=== PATIENT | female | born 1960 | race Caucasian/White ===

== ENCOUNTER 2016-08-30 06:52 | Inpatient (IN) | payer BC ==
[2016-08-30 07:51] LABS: Hematocrit 48 % (35-47); Hemoglobin 16.2 g/dl (12.0-16.0); Mean Corpuscular HGB Conc 34 g/dl (31-36); Mean Corpuscular Hemoglobin 31 pg (27-31); Mean Corpuscular Volume 92 fL (80-97); Mean Platelet Volume 9 um3 (7.4-10.4); Red Blood Count 5.22 10^6/ul (4.0-5.4); Red Cell Distribution Width 14 % (10.5-15); White Blood Count 8.7 10^3/ul (3.5-10.8)
[2016-08-30 08:03] LABS: ALT 44 U/L (7-52); Albumin 4.1 g/dL (3.2-5.2); Alkaline Phosphatase 88 U/L (34-104); BUN/Creatinine Ratio 20.8 (8-20); Blood Urea Nitrogen 16 mg/dL (6-24); CO2 Carbon Dioxide 24 mmol/L (22-32); Calcium 9.5 mg/dL (8.6-10.3); Chloride 97 mmol/L (101-111); Cholesterol 359 mg/dL; Globulin 3.7 g/dL (2-4); Glucose 247 mg/dL (70-100); HDL Cholesterol 45.7 mg/dL; Sodium 131 mmol/L (133-145); Total Protein 7.8 g/dL (6.4-8.9); Triglycerides 426 mg/dL
--- NOTE | 2016-08-30 08:03 | RAD ---
Indication: Right-sided weakness, slurred speech. CT of the brain was performed without IV contrast. Ventricular structures are midline. No midline shift is noted. The extraction spaces are unremarkable. There is no evidence of intracranial mass or hemorrhage. There is loss of muñoz-white differentiation in the left frontal temporal distribution which may represent an early MCA distribution infarct. No definite hemorrhage is noted. There is no evidence of intracranial mass or hemorrhage. No other high or low density lesions are identified. There may be early hypodensity in the left basal ganglia. IMPRESSION: THERE IS SOME LOSS AND CROWDING OF THE SULCI IN THE LEFT FRONTAL LOBE AND THE LEFT ANTERIOR SYLVIAN FISSURE. EARLY MCA INFARCT ON THE LEFT CANNOT BE EXCLUDED. NO HEMORRHAGE IS NOTED.
--- NOTE | 2016-08-30 08:04 | RAD ---
Indication: Chronic obstructive pulmonary disease. Strokelike symptoms. Comparison: June 11, 2016 Technique: Upright AP 0710 hours Report: Elevated lung volumes. Obesity limits image quality. No alveolar consolidation, focal pulmonary lesion, pleural effusion, pneumothorax. The heart, pulmonary vasculature, and mediastinal contours are unremarkable. IMPRESSION: Elevated lung volumes suggest obstructive lung disease. No acute cardiopulmonary process evident.
[2016-08-30 08:07] LABS: Troponin I 0.01 ng/mL (<0.04)
[2016-08-30] MEDS ORDERED: Iohexol 350* (CONTRAST) 500 ML MDV IV ONE (08:18)
[2016-08-30 08:23] LABS: Urine Bilirubin Negative (Negative); Urine Glucose Negative (Negative); Urine Nitrite Negative (Negative)
--- NOTE | 2016-08-30 09:22 | RAD ---
INDICATION: Acute cerebrovascular accident. COMPARISON: Comparison is made with a prior CT of the brain from August 30, 2016. TECHNIQUE: A CT angiogram of the head and neck was performed following intravenous injection of 80 ml of Omnipaque 350 nonionic contrast. Contiguous axial sections were obtained from the thoracic inlet through the skull vertex. Images were reconstructed in the coronal and sagittal planes and in a 3-D volume rendered format. The distal cervical internal carotid artery diameter is used as the denominator for stenosis measurement. The exam is limited due to the patient's body habitus. FINDINGS: RIGHT CAROTID: The common and internal carotid arteries appear patent without evidence for hemodynamically significant stenosis. LEFT CAROTID: The common and internal carotid arteries appear patent without evidence for hemodynamically significant stenosis. VERTEBRALS: The vertebral arteries appear patent without high-grade stenosis or occlusion. CTA BRAIN: The internal carotid, anterior and middle cerebral arteries appear patent without evidence for high-grade stenosis or occlusion. The vertebral, basilar and posterior cerebral arteries appear patent without evidence for high-grade stenosis or occlusion. No aneurysm or vascular malformation is seen. The lung apices appear clear. No significant enlarged cervical lymph nodes are seen. The thyroid gland appears small in size without focal abnormality. The parotid and submandibular glands appear normal. IMPRESSION: 1. NO EVIDENCE FOR CAROTID STENOSIS OR LARGE VESSEL INTRACRANIAL THROMBUS. 2. SLIGHTLY LIMITED EXAM. CPT II Codes: 3100F
[2016-08-30] MEDS ORDERED: NS 0.9% 1000 ML* 1,000 ML IV SCH ×2 (09:45→10:53)
[2016-08-30] MEDS: Aspirin TAB* 325 MG PO SCH (09:58)
[2016-08-30] MEDS ORDERED: Dextrose 50% Syringe 50 ML* 25 GM/50 ML SYRINGE IV PUSH PRN (10:46)
--- NOTE | 2016-08-30 12:03 | RAD ---
Indication: Stroke. Sagittal and axial T1, axial T2, FLAIR, diffusion and susceptibility weighted images were obtained. Ventricular structures are midline. No midline shift is noted. The extraction spaces are unremarkable. There is restriction of diffusion involving the left basal ganglia posterior limb of left internal capsule. This extends to the periventricular white matter. This is consistent with acute infarct. Additionally there is periventricular signal abnormalities without evidence of restriction of diffusion system with chronic ischemic White matter change. IMPRESSION: Acute infarct in the left temporal insula extending into the left posterior internal capsule. Chronic ischemic White matter change is noted.
[2016-08-30] MEDS: Insulin LISPRO* 1 UNITS UNIT SUBCUT SCH ×3 (12:30→21:50)
[2016-08-30] MEDS: Heparin VIAL(*) 5000 UNITS/ML VIAL (FIVE THOUSAND) SUBCUT SCH ×2 (12:31→20:41)
--- NOTE | 2016-08-30 15:40 | ECHO ---
Patient: ASHTYN NEWMAN [facility] Rec#: [id number] : 1960 Date: 08/30/2016 Age: 56y Height: 165.1 cm / 65.0 in Weight: 113.4 kg / 249.9 lbs Sex: F BSA: 2.2 Room#: [facility] Admit Date#: 08/30/2016 Type: Inpatient Referring: Emilie Bryson MD Reading: Wilner Zepeda MD Income Tax Analyst: Sally Oviedo RN RDCS Transthoracic Echocardiogram Indication: CVA BP: 187/103 HR: 108 Rhythm: Tachycardia Findings History: Atrial fib/flutter, hypothyroidism, COPD, smoker, PETER, GERD, migraines Technical Comments: The study is technically limited due to patient body habitus. The study is technically limited due to the patient's history of COPD. The study is technically limited due to the patient's smoking history. The study was technically limited due to the patient's inability to lay in the left lateral decubitus position. Completed at 1525. Left Ventricle: The left ventricular chamber size is decreased. Mild concentric left ventricular hypertrophy is observed. Global left ventricular wall motion and contractility are within normal limits. There is normal left ventricular systolic function. The estimated ejection fraction is 55-60%. Abnormal left ventricular diastolic filling is observed, consistent with impaired relaxation. Given the absence of left atrial enlargement , this finding may not have clinical significance Left Atrium: The left atrial chamber size is normal. Right Ventricle: The right ventricular cavity size is normal. The right ventricular global systolic function is normal. Right Atrium: The right atrial cavity size is normal. Aortic Valve: The aortic valve leaflets are mildly thickened. There is no evidence of aortic regurgitation. There is no evidence of aortic stenosis. Mitral Valve: The mitral valve leaflets appear normal. There is a trace of mitral regurgitation. There is no evidence of mitral stenosis. Tricuspid Valve: The tricuspid valve leaflets are normal. There is trace tricuspid regurgitation. Unable to estimate the right ventricular systolic pressure. Pulmonic Valve: The pulmonic valve structure is not well visualized. Pericardium: There is no significant pericardial effusion. A pericardial fat pad is visualized. Aorta: There is no dilatation of the ascending aorta. There is no dilatation of the aortic arch. There is no dilation of the aortic root. Pulmonary Artery: The main pulmonary artery is not well visualized. Venous: The venous system is not well visualized. The inferior vena cava is not visualized. Conclusions The study is technically limited due to patient body habitus. The study was technically limited due to the patient's inability to lay in the left lateral decubitus position. Mild concentric left ventricular hypertrophy is observed. Global left ventricular wall motion and contractility are within normal limits. The estimated ejection fraction is 55-60%. Abnormal left ventricular diastolic filling is observed, consistent with impaired relaxation. Given the absence of left atrial enlargement , this finding may not have clinical significance No evidence for significant valvular disease: There is a trace of mitral regurgitation. There is trace tricuspid regurgitation. Compared to [facility] report of 11/03/2015 there currently is no TR ( was mild to moderate), the MR is now trace (was mild). Overall LV systolic function has improved with patient currently in NSR (EF was 45-50% with prior study done in atrial fibrillation). Prior study demonstrated the presence of a PFO, as such this was not reinvestigated(pump house technician discussed this issue with Hospitalist Dr. Bryson) Measurements Name Value Normal Range RVDdMajor (2D) 2.5 cm (2.2 - 4.4) RAd ISD 4CH 3.1 cm (3.4 - 4.9) RA (A4C)W 3.3 cm (2.9 - 4.6) IVSd (2D) 1.2 cm (0.6 - 1) LVPWd (2D) 1.2 cm (0.6 - 1) LVIDd (2D) 3.3 cm (3.6 - 5.4) Aortic Annulus 2.2 cm (1.4 - 2.6) Ao root diameter (2D) 3.1 cm (2.1 - 3.5) Ascending Ao 3.2 cm (2.1 - 3.4) Aortic arch 2.5 cm (1.8 - 3.4) LA dimension (AP) 2D 2.4 cm (2.3 - 3.8) LAd ISD 4CH 3.4 cm (2.9 - 5.3) LA ISD 4CH W 3.1 cm (2.5 - 4.5) Name Value Normal Range LA ESV SP 4CH (A/L) 27 ml - LA ESV SP 2CH (A/L) 41 ml - LA ESV BP (A/L) 36 ml - LA ESV BP (A/L) index 16.6 ml/m2 - LA ESV SP 4CH (MOD) 24 ml - LA ESV SP 2CH (MOD) 40 ml - Name Value Normal Range MV E-wave Vmax 0.64 m/sec - MV deceleration time 204 msec - MV A-wave Vmax 1 m/sec - MV E:A ratio 0.62 ratio - LV septal e' Vmax 0.07 m/sec - LV lateral e' Vmax 0.1 m/sec - LV E:e' septal ratio 9.1 ratio - LV E:e' lateral ratio 6.4 ratio - Name Value Normal Range AV Vmax 1.2 m/sec - LVOT Vmax 1.1 m/sec - AMMY Vmax 0.78 m/sec - Name Value Normal Range PV Vmax 0.79 m/sec -
--- NOTE | 2016-08-30 16:29 | HP ---
HISTORY AND PHYSICAL: * DATE OF ADMISSION: 08/30/16 ADDENDUM: Medication list form home that includes: 1. Levothyroxine a total of 225 mcg daily. 2. Amitriptyline 75 mg at bedtime. 3. Depakote ER at 1000 mg at night. [id number]/[facility] #: [id number] MTDD
--- NOTE | 2016-08-30 16:46 | HP ---
ADDENDUM MEDICATION LIST NOW INCLUDED ON THIS REPORT HISTORY AND PHYSICAL: DATE OF ADMISSION: 08/30/16 PRIMARY CARE PHYSICIAN: None. WATERSHED ENGINEER: Anup Alston MD CHIEF COMPLAINT: Right-sided weakness and slurred speech. HISTORY OF PRESENT ILLNESS: Wendy Napoles is a 56-year-old female with a history of one episode of atrial flutter from which she was cardioverted in the mid 2015. The patient also has a history of migraines, obesity. She had plenty issues with trying to make appointments to see her primary care provider who in the past was Dr. Das. Currently, she does not have a primary care provider and she saw Dr. Das last in June of 2016. Today in the morning, she woke up as usual at 4 to 4:13 a.m. to get ready to work. She stated that she felt very weak and she felt that her legs are bilaterally weak. She tried to get up from bed, but she needed her 's help. Then, her also noted for her to have slurred speech. He tried to walk her over to their car to be able to drive her to the ER, but she was too weak to do so. Subsequently, she called 911. On arrival, she was noted to have dysarthria, right-sided facial droop and right-sided hemiplegia. The CT of the brain showed most likely possible early MCA infarct on the left. The patient is going to be admitted with a diagnosis of acute ischemic stroke. PAST MEDICAL HISTORY: 1. Migraines. 2. History of atrial flutter from which the patient was cardioverted in November of 2015. She was initially placed on Xarelto. She saw Dr. Alston for followup in December of 2015 at which time a stress echocardiogram was recommended. That was negative and although I could not find in Dr. Alston's notes, this information as per the patient and patient's . After the cardiac stress test was unremarkable, Dr. Alston discontinued the patient's Xarelto in June of 2016. 3. History of gastroesophageal reflux disease. 4. History of diabetes, which was diagnosed during her last hospital stay in November of 2015. The patient adamantly denies, but she was diagnosed with diabetes. She stated that she was never informed about that although in Dr. Dank's notes from discharge summary of this hospital stay in November of 2015, it was stated that the patient received extensive education in regards to her diabetes. 5. Status post cholecystectomy. 6. History of bilateral knee replacements. 7. Rotator cuff on the right. 8. History of ankle surgery on the left. 9. Breast lumpectomy on the left. 10. History of appendectomy. 11. History of urethral strictures. 12. History of hypothyroidism. 13. Obstructive sleep apnea. The patient is not compliant with CPAP. The patient's last cardiac stress echo was obtained in December of 2015 and was negative for ischemia. Her EF at that point was 55%. FAMILY HISTORY: Positive for father with CVA who of complication of his stroke at the age of 83. Mother had history of lung cancer, at the age of 73. SOCIAL HISTORY: The patient began smoking when she was a teenager. She currently smokes half a pack per day. She rarely drinks alcohol. She denies any drug use. Her , Esteban, is her surrogate. She works at [employer] at [employer]. REVIEW OF SYSTEMS: Please see history of present illness. The patient stated that she had been in her usual state of health until today in the morning when she woke up with weakness and slurred speech. She denies any headaches. She last saw her physician in June of 2016. The remaining 14 systems were reviewed with the patient and were otherwise negative. PHYSICAL EXAMINATION GENERAL: The patient is a pleasant 56-year-old obese female who is in no acute distress. Alert, awake, and oriented x3. VITAL SIGNS: Blood pressure 187/103, heart rate of 103 and regular, respiratory rate 21, oxygen saturation 95% on room air, and temperature was 98.5. HEENT: Head: Atraumatic, normocephalic. Eyes: Pupils equal and reactive to light and accommodation. Oropharynx clear. Mucosa moist. NECK: Supple. No JVD, no bruits bilaterally. RESPIRATORY: Clear to auscultation bilaterally. CARDIOVASCULAR: Regular rate and rhythm. No murmur. ABDOMEN: Soft, nontender. Bowel sounds present in all 4 quadrants. EXTREMITIES: There is no edema. +2 pulses bilaterally. No clubbing or cyanosis. NEUROLOGIC: Neuro evaluation notable for right-sided facial droop with sparing of the forehead. Notable for slight dysarthria due to the facial droop. In upper extremities, the right upper extremity, the patient has positive pronator drift and positive weakness more pronounced proximally than distally. Her handgrip is at 4+/5. Once again, proximally her arm is weak at 4/5. In bilateral lower extremities, the right lower extremity is weaker at 4+/5. Sensation is grossly intact. PSYCHIATRIC EVALUATION: The patient is oriented x3 with no evidence of anxiety. DIAGNOSTIC STUDIES/LAB DATA: White blood cell count of 8.7, hemoglobin 16.2, hematocrit 48, and platelets of 209. Sodium is 131, potassium 4.4, chloride 97, carbon dioxide 24, BUN 16, creatinine of 0.77. Lactic acid mildly elevated at 2.9. Glucose level was 247. Liver function tests were unremarkable. Her nonfasting lipid profile shows triglycerides of 426, cholesterol of 359, and HDL of 45. LDL could not be calculated due to high triglycerides. The patient's troponin was 0.01. Head CTA obtained in the ED, impression: "No evidence of carotid stenosis or large vessel intracranial thrombus. Slightly limited exam". The patient's portable chest x-ray, impression: "Elevated lung volume suggestive of obstructive lung disease. No acute cardiopulmonary process evident." Brain CT, impression: "There is some loss and crowding of the sulci in the left frontal lobe and the left anterior sylvian fissure. Early MCA infarct on the left cannot be excluded. No hemorrhages noted." EKG read by myself showed sinus tachycardia with a heart rate of 106 beats per minute with flattening of Ts in the inferior leads. Otherwise, no acute abnormalities noted. ASSESSMENT AND PLAN: 1. The patient has right-sided hemiplegia due to ischemic infarct in the left middle cerebral artery territory. She also has mild dysarthria. She is going to be admitted to the telemetry monitoring bed. It is suspected that it could be cardioembolic event from her history of atrial flutter and she was anticoagulated mid last year, but that was stopped. Nevertheless for the time being, we will start to treat her with aspirin only until Neurology okays with anticoagulation. The patient is going to be placed on neuro checks every 2 hours. Speech Therapy is also already involved in patient's care. Physical therapy and occupational therapy will also be involved. We will ask Dr. Walton to see patient in consultation from Neurology. An MRI of the brain is going to be obtained. We will also obtain transthoracic echocardiogram with bubble study although once again most likely the patient had a cardioembolic stroke. 2. In regards to the patient's hypercholesterolemia, she is going to be placed on Lipitor. 3. In regards to the patient's hypertension, we will allow permissive hypertension at this point due to her newly diagnosed stroke. 4. In regards to the patient's diabetes, according to the patient, this is a new diagnosis for her and she never heard it before although according to medical records, the patient was evaluated and treated for it in mid of 2015. Nevertheless, hemoglobin A1c is going to be ordered again. The patient is going to be placed on diabetic diet. Diabetic education and nutrition is going to be ordered again. 5. In regards to hypothyroidism, the patient's outpatient medications are going to be continued. 6. In regards to history of migraine headaches, for prevention amitriptyline and Depakote is going to be continued as outpatient. 7. For obstructive sleep apnea, the patient cannot tolerate CPAP. We will place the patient on oxygen on a nightly basis. 8. For DVT prophylaxis, the patient is going to be placed on heparin subcutaneously. 9. The patient's code status is full and the patient's surrogate is her . TIME SPENT: Approximately 65 minutes was spent on admission of this patient; more than half that time was spent [id number] with the patient doing the interview, physical exam. ADDENDUM: Medication list form home that includes: 1. Levothyroxine a total of 225 mcg daily. 2. Amitriptyline 75 mg at bedtime. 3. Depakote ER at 1000 mg at night. CC: Dr. Alston; Dr. Das* [id number]/[facility] #: [id number]/[facility] #: [id number] VIKKI
[2016-08-30] MEDS: Atorvastatin* 40 MG TAB PO SCH (17:19)
[2016-08-30] MEDS: Acetaminophen TAB* 325 MG PO PRN (18:05)
[2016-08-30] MEDS ORDERED: hydrALAZINE IV* 20 MG/ML VIAL IV SLOW PU PRN (19:51)
[2016-08-30] MEDS: Nicotine PATCH 21 MG/24 HR* PATCH TRANSDERM SCH (20:40)
[2016-08-30] MEDS: Divalproex ER TAB(*) 500 MG PO SCH (20:56)
[2016-08-30] MEDS ORDERED: Amitriptyline TAB* 25 MG PO SCH (21:00)
[2016-08-30] MEDS ORDERED: Levothyroxine TAB* 25 MCG TAB PO SCH (21:00)
--- NOTE | 2016-08-30 21:00 | CONS ---
NEUROLOGY CONSULTATIONS: DATE OF CONSULT: 08/30/16 LOCATION: She is an inpatient, room 450. REFERRING PROVIDER: Dr. Bryson. PRIMARY CARE PROVIDER: None. CHIEF COMPLAINT: Right-sided weakness. HISTORY OF PRESENT ILLNESS: Wendy Napoles is a 56-year-old right-handed woman who woke up this morning with weakness of her right side and slurred speech. She felt well yesterday. There is no prior history of cerebral vascular events. She was hospitalized last October with atrial flutter and possibly fibrillation once before that. She was discharged on Xarelto. She and her state that it was stopped subsequently when she had further cardiac evaluation, so she has not had it recently. She does not take aspirin on a regular basis. She has a history of diabetes and refused medications for it when last hospitalized in October indicating that she was going to try to attempt to be diet controlled. There is no history of hypertension, she is an ongoing tobacco smoker, she has dyslipidemia as well. She does not have a primary care physician. She does not take aspirin on a regular basis. She has migraine headaches typically in recent years, a few times to four times a year. She is on amitriptyline and Depakote prescribed by a neurologist in the [facility] for control of her migraines. Currently, she notes weakness of her right side and respiration seem affected when she exhales she breathes out of the right side of her mouth. She has not noticed any difficulty swallowing today. No change in vision either. MEDICATIONS: At home consist of: 1. Depakote, extended release 1000 mg p.o. q.h.s. 2. Amitriptyline 75 mg p.o. q.h.s. 3. Levothyroxine 225 mcg p.o. daily. ALLERGIES: According to computer records, she is allergic to CIPROFLOXACIN and METRONIDAZOLE. REVIEW OF SYSTEMS: Notable for episodic migraines, bilateral knee replacements , urinary tract infections treated a few weeks ago with antibiotics. PHYSICAL EXAM: She is obese. Blood pressure is running about 180 to 190 systolic/90 to 105 diastolic. Heart rate is about 80 and seems regular and respiratory rate 18. Oxygen saturation is 95% on room air. Heart is in a regular rate and rhythm without murmurs heard. There are no cervical bruits auscultated. Neurological Exam: Pupils react equally from 4 down to 2.5 mm. Funduscopic exam reveals sharp discs bilaterally. Visual encarnacion are full to confrontation. Facial musculature is notable for central pattern of right facial weakness. Speech is markedly dysarthric with occasional difficulty understanding her words. Tongue protrudes slightly to the right. Palate is poorly visualized. Sensory exam to pin and light touch in the face is symmetrical. Hearing is intact. Motor exam reveals a dense right hemiplegia with ability to generate some resistive strength, but not elevate to right arm off the bed. She has a weak finger buffs assembler as well. In the right lower extremity, she is able to raise the leg slightly off the bed, but with little resistance and has pretty good resistive strength in the right ankle dorsiflexion. She has normal strength in the left arm and leg. She has intact light touch and pin discrimination in upper and lower extremities symmetrically. There may be some mild vibratory loss in the feet. Reflexes are fairly brisk and symmetric. Ankle reflexes are grade 1. She has a right Babinski's sign. Although she is very dysarthric, she appears to have fluent language. Comprehension seems fully intact. She has good attention, concentration, and appears to have a reasonably good fund of knowledge. DIAGNOSTIC STUDIES/LAB DATA: Laboratory data includes a MRA of the brain, which reveals an acute left posterior limb internal capsule infarction. There is some nonspecific chronic subcortical white matter changes consistent with chronic ischemic disease as well. CT angiogram of the brain and neck reveals no evidence of large vessel atherosclerotic disease. Other laboratory data is notable for a normal CBC other than elevated hemoglobin of 16.2 today, otherwise a normal CBC. Her chemistry profile is notable for a sodium of 131, glucose 247, hemoglobin A1c 9.3%. Lipids are notable for cholesterol of 359 this morning, LDL was unable to calculate as triglycerides were greater than 400 at 426. IMPRESSION: This is a pure motor hemiparesis from a posterior limb internal capsule lacunar infarction. Usual mechanism is arteriosclerotic disease with risk factors being hypertension and diabetes. She does not have a history of hypertension, was quite hypertensive today. Although she has a history of atrial fibrillation and flutter, the mechanism does not seem likely to be a cardioembolic and so, I do not recommend anticoagulation at this point. She is currently on telemetry and an echocardiogram has been done and results pending. She has been started on aspirin 325 mg, which I agree with. I would recommend stopping amitriptyline due to her blood pressure issues, but continue Depakote for now for migraine prophylaxis. She has been started on atorvastatin 40 mg per day and I agree with that as well. Smoking cessations will be strongly encouraged and this was discussed with Ms. Napoles and her . She is currently on sliding scale of insulin and clearly she will need to be on a diabetic medical regimen to optimize blood sugar control over the electrical engineering designer. She has had a swallowing evaluation, and physical therapy and occupational therapy will be needed as well. I will follow her with you. [id number]/[facility] #: [id number] VIKKI
[2016-08-31] MEDS: CMCS: Melatonin (NF) 3 MG TAB PO PRN ×2 (03:33→20:50)
[2016-08-31 05:47] LABS: Hematocrit 45 % (35-47); Hemoglobin 15.4 g/dl (12.0-16.0); Mean Corpuscular HGB Conc 34 g/dl (31-36); Mean Corpuscular Hemoglobin 31 pg (27-31); Mean Corpuscular Volume 92 fL (80-97); Mean Platelet Volume 8 um3 (7.4-10.4); Red Cell Distribution Width 14 % (10.5-15); White Blood Count 7.8 10^3/ul (3.5-10.8)
[2016-08-31 05:58] LABS: BUN/Creatinine Ratio 19.7 (8-20); Calcium 9.1 mg/dL (8.6-10.3); EGFR African American 108.7 (>60); EGFR Non-African American 84.6 (>60); HDL Cholesterol 36.3 mg/dL
[2016-08-31] MEDS ORDERED: Levothyroxine TAB* 100 MCG TAB PO SCH (06:00)
[2016-08-31] MEDS: Heparin VIAL(*) 5000 UNITS/ML VIAL (FIVE THOUSAND) SUBCUT SCH ×3 (06:01→20:50)
[2016-08-31] MEDS ORDERED: Nicotine Patch Removal NOTE PATCH OFF SCH (08:00)
[2016-08-31] MEDS: Insulin LISPRO* 1 UNITS UNIT SUBCUT SCH ×4 (09:32→20:48)
[2016-08-31] MEDS: Aspirin TAB* 325 MG PO SCH (09:33)
[2016-08-31] MEDS: Acetaminophen TAB* 325 MG PO PRN ×2 (09:34→20:50)
--- NOTE | 2016-08-31 14:27 | PN ---
Subjective Date of Service: 08/31/16 Interval History: . Patient reports she feels "a little better" but states she is exhausted and feels that she needs to rest. Continues to have Right sided hemiparesis and slurred speech. No AGUILAR or vision changes. Tolerating regular diet, no coughing or choking. Denies fever or chills. Denies pain, sob or CP. Objective Active Medications: Acetaminophen (Tylenol Tab*) 650 mg PO Q4H PRN PRN Reason: FEVER/PAIN Last Admin: 08/31/16 09:34 Dose: 650 mg Aspirin (Aspirin Tab*) 325 mg PO DAILY [facility] Last Admin: 08/31/16 09:33 Dose: 325 mg Atorvastatin Calcium (Lipitor*) 40 mg PO 1700 [facility] Last Admin: 08/30/16 17:19 Dose: 40 mg Dextrose (D50w Syringe 50 Ml*) 12.5 gm IV PUSH .FOR FS < 60 - SS PRN PRN Reason: FS < 60 Divalproex Sodium (Depakote Er Tab(*)) 1,000 mg PO 2100 [facility] Last Admin: 08/30/16 20:56 Dose: 1,000 mg Heparin Sodium (Porcine) (Heparin Vial(*)) 5,000 units SUBCUT Q8HR [facility] Last Admin: 08/31/16 13:29 Dose: 5,000 units Hydralazine HCl (Apresoline Iv*) 5 mg IV SLOW PU Q6H PRN PRN Reason: BLOOD PRESSURE Last Admin: 08/30/16 20:46 Dose: 5 mg Sodium Chloride (Ns 0.9% 1000 Ml*) 1,000 mls @ 75 mls/hr IV PER RATE [facility] Last Admin: 08/30/16 14:52 Dose: 75 mls/hr Insulin Human Lispro (Humalog*) 0 units SUBCUT ACHS [facility] PRN Reason: Protocol Last Admin: 08/31/16 12:48 Dose: 3 unit Levothyroxine Sodium (Synthroid Tab*) 200 mcg PO 0600 [facility] Last Admin: 08/31/16 04:12 Dose: Not Given Levothyroxine Sodium (Synthroid Tab*) 25 mcg PO BEDTIME [facility] Last Admin: 08/30/16 20:48 Dose: Not Given Lisinopril (Prinivil Tab*) 5 mg PO DAILY [facility] Lisinopril (Prinivil Tab*) 5 mg PO ONCE ONE Stop: 08/31/16 15:01 Melatonin (Melatonin (Nf)) 3 mg PO BEDTIME PRN; Protocol PRN Reason: Sleep Last Admin: 08/31/16 03:33 Dose: 3 mg Nicotine (Nicotine Patch 21 Mg/24 Hr*) 1 patch TRANSDERM Q24H [facility] Last Admin: 08/30/16 20:40 Dose: 1 patch Pharmacy Profile Note (Nicotine Patch Removal Note*) 1 note PATCH OFF 0800 [facility] Last Admin: 08/31/16 09:48 Dose: 1 note Vital Signs 08/30/16 08/30/16 08/30/16 14:37 15:33 19:19 Temperature 98.6 F 98.3 F Pulse Rate 112 101 Respiratory 17 20 18 Rate Blood Pressure 168/89 186/105 (mmHg) O2 Sat by Pulse 95 94 Oximetry 08/30/16 08/30/16 08/31/16 20:00 23:51 00:00 Temperature 98.0 F Pulse Rate 101 Respiratory 20 20 Rate Blood Pressure 168/92 (mmHg) O2 Sat by Pulse 100 100 100 Oximetry 08/31/16 08/31/16 08/31/16 03:28 04:54 07:25 Temperature 98.6 F 97.9 F Pulse Rate 107 108 Respiratory 16 18 Rate Blood Pressure 157/87 188/107 (mmHg) O2 Sat by Pulse 96 95 97 Oximetry 08/31/16 08/31/16 08:00 08:50 Temperature Pulse Rate Respiratory 16 Rate Blood Pressure 168/104 (mmHg) O2 Sat by Pulse Oximetry Oxygen Devices in Use Now: None Appearance: obese female sitting in a chair A+O x3 in NAD; notable right sided hemeparesis and slurred speech Eyes: No Scleral Icterus, PERRLA Ears/Nose/Mouth/Throat: NL Teeth, Lips, Gums, Mucous Membranes Moist Neck: NL Appearance and Movements; NL JVP Respiratory: Symmetrical Chest Expansion and Respiratory Effort, Clear to Auscultation Cardiovascular: NL Sounds; No Murmurs; No JVD, RRR, No Edema Abdominal: NL Sounds; No Tenderness; No Distention, - - obese Lymphatic: No Cervical Adenopathy Extremities: No Edema, No Clubbing, Cyanosis Skin: No Rash or Ulcers, No Nodules or Sclerosis Neurological: Alert and Oriented x 3, - - right sided hemiparesis, slurred speech Lines/Tubes/Other Access: Clean, Dry and Intact Peripheral IV Nutrition: Taking PO's Result Diagrams: 08/31/16 05:23 08/31/16 05:23 Assess/Plan/Problems-Billing Assessment: Ms. Napoles is a 56 yo female PMH of aflutter, GERD, DM2, current tobacco abuse who presented on 08/29 with right sided weakness and slurred speech - Patient Problems (1) CVA (cerebral vascular accident) Comment: - lacunar infarct with right motor hemiparesis. Neurology following - less likely cardioembolic and does not recommend anticoagulation at this point. - continue ASA 325 mg daily, Atorvastatin 40 mg daily. - PT/OT. PMRU eval. - Echo showing EF 55-60%, no significant valvular disease - last TTE showed PFO , no bubble study was performed. - Head CTA no carotid stenosis or large vessel intracranial thrombus (2) Diabetes Comment: - Dx in 2016 but pt adamantly denies dx, even though it is documented she had extensive education last hospitalization - HgA1C 9 - Continue FSBG with lispro SS and start Lantus 10 units tonight - Metformin on DC - DM consult by [facility] (3) Hx of migraines Comment: - per Dr. Walton continue home dose Depakote for migraine prophylaxis, stop amitriptyline. (4) Tobacco abuse Comment: - nictotine replacement - smoking cessation (5) HTN (hypertension) Comment: - started lisinopril (6) GERD (gastroesophageal reflux disease) Comment: - start PPI (7) Hx of atrial flutter Comment: - One episode of aflutter November 2015 in which she was placed on anticoagulation and was cardioverted, Cards DC's her anticoagulation. - EKG SR - continue to monitor on tele (8) Hypothyroid Comment: - continue synthroid (9) DVT prophylaxis Comment: HSQ (10) Full code status Status and Disposition: inpatient with CVA. Will need subacute, PMRU consult pending
[2016-08-31] MEDS ORDERED: Lisinopril TAB* 5 MG PO ONE (15:00)
[2016-08-31] MEDS: Atorvastatin* 40 MG TAB PO SCH (17:35)
[2016-08-31] MEDS: Divalproex ER TAB(*) 500 MG PO SCH (20:47)
[2016-08-31] MEDS ORDERED: LEVOTHYROXINE 25 MCG PO SCH ×2 (21:00)
[2016-08-31] MEDS ORDERED: Insulin GLARGINE(*) 1 UNITS UNIT SUBCUT SCH (21:00)
--- NOTE | 2016-08-31 21:25 | CONS ---
NEUROLOGY FOLLOWUP NOTE: DATE OF FOLLOWUP: 08/31/16 LOCATION: Room 450. CHIEF COMPLAINT: Stroke. INTERVAL HISTORY: Since yesterday, Wendy has not really seen much change. She was able to bear weight with assistance earlier. She denies problems with swallowing, but notes that she bit the inside of her right cheek while chewing. MEDICATIONS: Reviewed and she remains on: 1. Aspirin 325 mg p.o. daily. 2. Depakote ER 1000 mg p.o. q.h.s. 3. Heparin 5000 units subcu q.8 hours. 4. Insulin sliding scale. 5. Levothyroxine 225 mcg p.o. daily. 6. Nicotine patch. PHYSICAL EXAMINATION: She appears well hydrated. Temperature 97.9. Blood pressure most recently 168/104 and earlier was 188/107. Neurologically, speech is dysarthric. She has less than antigravity strength in the right upper extremity, she has central pattern right facial weakness. I did not attempt to ambulate her. She has dysarthria, but language is fluent. LABORATORY DATA: Additional laboratory data includes a transthoracic echocardiogram notable for some left ventricular hypertrophy, but an otherwise unremarkable study. 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 At this point, I would recommend adding an antihypertensive agent, probably an DULCE inhibitor would be best. Recommend starting an oral hypoglycemic agent, probably metformin. I would avoid beta-blockers. Recommend having the physical medicine rehab team evaluate her for possible PMRU admission. [id number]/[facility] #: [id number] VIKKI
[2016-09-01 05:15] LABS: Hematocrit 45 % (35-47); Hemoglobin 15.1 g/dl (12.0-16.0); Mean Corpuscular HGB Conc 33 g/dl (31-36); Mean Corpuscular Hemoglobin 31 pg (27-31); Mean Corpuscular Volume 93 fL (80-97); Mean Platelet Volume 8 um3 (7.4-10.4); Red Blood Count 4.88 10^6/ul (4.0-5.4); Red Cell Distribution Width 14 % (10.5-15); White Blood Count 8.9 10^3/ul (3.5-10.8)
[2016-09-01 05:35] LABS: BUN/Creatinine Ratio 16.9 (8-20); Calcium 9.2 mg/dL (8.6-10.3)
[2016-09-01] MEDS: Heparin VIAL(*) 5000 UNITS/ML VIAL (FIVE THOUSAND) SUBCUT SCH ×2 (05:48→13:05)
[2016-09-01 05:51] LABS: TSH (Thyroid Stimulating Horm) 4.25 mcIU/mL (0.34-5.60)
[2016-09-01] MEDS ORDERED: Omeprazole CAP* 20 MG PO SCH (06:00)
[2016-09-01] MEDS ORDERED: LEVOXYL 100 MCG PO SCH (06:00)
--- NOTE | 2016-09-01 07:28 | PN ---
Subjective Date of Service: 09/01/16 Interval History: pt reports her speech is a little better today and PT told her they thought she has has some improvement today in mobility. Continues to have right arm hemiparesis and she can move her right leg but it feels very heavy. Continues to have garbled speech. Tolerating PO well, no coughing or choking. Denies AGUILAR or vision changes. Objective Active Medications: Acetaminophen (Tylenol Tab*) 650 mg PO Q4H PRN PRN Reason: FEVER/PAIN Last Admin: 08/31/16 20:50 Dose: 650 mg Aspirin (Aspirin Tab*) 325 mg PO DAILY [facility] Last Admin: 08/31/16 09:33 Dose: 325 mg Atorvastatin Calcium (Lipitor*) 40 mg PO 1700 [facility] Last Admin: 08/31/16 17:35 Dose: 40 mg Dextrose (D50w Syringe 50 Ml*) 12.5 gm IV PUSH .FOR FS < 60 - SS PRN PRN Reason: FS < 60 Divalproex Sodium (Depakote Er Tab(*)) 1,000 mg PO 2100 [facility] Last Admin: 08/31/16 20:47 Dose: 1,000 mg Heparin Sodium (Porcine) (Heparin Vial(*)) 5,000 units SUBCUT Q8HR [facility] Last Admin: 09/01/16 05:48 Dose: 5,000 units Hydralazine HCl (Apresoline Iv*) 5 mg IV SLOW PU Q6H PRN PRN Reason: BLOOD PRESSURE Last Admin: 08/30/16 20:46 Dose: 5 mg Insulin Glargine (Lantus(*)) 10 units SUBCUT Q24H [facility] Last Admin: 08/31/16 20:49 Dose: 10 unit Insulin Human Lispro (Humalog*) 0 units SUBCUT ACHS [facility] PRN Reason: Protocol Last Admin: 08/31/16 20:48 Dose: 3 unit Lisinopril (Prinivil Tab*) 5 mg PO DAILY [facility] Melatonin (Melatonin (Nf)) 3 mg PO BEDTIME PRN; Protocol PRN Reason: Sleep Last Admin: 08/31/16 20:50 Dose: 3 mg Nicotine (Nicotine Patch 21 Mg/24 Hr*) 1 patch TRANSDERM 0800 [facility] Pto: Levoxyl 25 Mcg 1 dose PO BEDTIME [facility] Last Admin: 08/31/16 22:01 Dose: 1 dose Pto Nf Med* Levoxyl (100 Mcg) 1 dose PO BEDTIME [facility] Last Admin: 08/31/16 22:01 Dose: 1 dose Omeprazole (Prilosec Cap*) 20 mg PO 0600 [facility] Last Admin: 09/01/16 05:48 Dose: 20 mg Pharmacy Profile Note (Nicotine Patch Removal Note*) 1 note PATCH OFF 2100 [facility] Vital Signs 08/31/16 08/31/16 08/31/16 08:00 08:50 20:00 Temperature Pulse Rate Respiratory 16 16 Rate Blood Pressure 168/104 (mmHg) O2 Sat by Pulse 96 Oximetry 08/31/16 08/31/16 09/01/16 20:22 23:28 01:40 Temperature 97.9 F Pulse Rate 99 98 Respiratory 16 Rate Blood Pressure 152/93 152/99 (mmHg) O2 Sat by Pulse 96 96 Oximetry 09/01/16 04:13 Temperature 97.6 F Pulse Rate 95 Respiratory 20 Rate Blood Pressure 140/83 (mmHg) O2 Sat by Pulse 98 Oximetry Oxygen Devices in Use Now: None Appearance: obese female sitting up in the chair in NAD. A+O x3 Eyes: No Scleral Icterus, PERRLA Ears/Nose/Mouth/Throat: NL Teeth, Lips, Gums, Mucous Membranes Moist Neck: NL Appearance and Movements; NL JVP Respiratory: Symmetrical Chest Expansion and Respiratory Effort, Clear to Auscultation Cardiovascular: NL Sounds; No Murmurs; No JVD, RRR, No Edema Abdominal: NL Sounds; No Tenderness; No Distention, - - obese Extremities: No Edema, No Clubbing, Cyanosis Skin: No Rash or Ulcers, No Nodules or Sclerosis Neurological: Alert and Oriented x 3, NL Sensation, - - garbled sppech (noted mild improvement today), Right upper ext paralysis, RLE weakness noted but is able to move leg independently Lines/Tubes/Other Access: Clean, Dry and Intact Peripheral IV Nutrition: Taking PO's Result Diagrams: 09/01/16 04:29 09/01/16 04:29 Assess/Plan/Problems-Billing Assessment: Ms. Napoles is a 56 yo female PMH of aflutter, GERD, DM2, current tobacco abuse who presented on 08/29 with right sided weakness and slurred speech - Patient Problems (1) CVA (cerebral vascular accident) Comment: - lacunar infarct with right motor hemiparesis. Neurology following - less likely cardioembolic and does not recommend anticoagulation at this point. - continue ASA 325 mg daily, Atorvastatin 40 mg daily. - PT/OT. - Echo showing EF 55-60%, no significant valvular disease - last TTE showed PFO , no bubble study was performed. - Head CTA no carotid stenosis or large vessel intracranial thrombus - PMRU pending pre-authorization (2) Diabetes Comment: - Dx in 2016 but pt adamantly denies dx, even though it is documented she had extensive education last hospitalization - HgA1C 9 - Continue FSBG with lispro SS and start Lantus 10 units tonight - Metformin on DC - DM consult by [facility] (3) Hx of migraines Comment: - per Dr. Walton continue home dose Depakote for migraine prophylaxis, stop amitriptyline. (4) Tobacco abuse Comment: - nictotine replacement - smoking cessation (5) HTN (hypertension) Comment: - started lisinopril (6) GERD (gastroesophageal reflux disease) Comment: - start PPI (7) Hx of atrial flutter Comment: - One episode of aflutter November 2015 in which she was placed on anticoagulation and was cardioverted, Cards DC's her anticoagulation. - EKG SR - continue to monitor on tele (8) Hypothyroid Comment: - continue synthroid (9) DVT prophylaxis Comment: HSQ (10) Full code status Status and Disposition: inpatient with CVA. Will need subacute, PMRU pending per pre-auth
[2016-09-01] MEDS: Nicotine PATCH 21 MG/24 HR* PATCH TRANSDERM SCH (07:45)
[2016-09-01] MEDS ORDERED: Nicotine PATCH 21 MG/24 HR* PATCH TRANSDERM SCH (08:00)
[2016-09-01] MEDS ORDERED: Lisinopril TAB* 5 MG PO SCH (09:00)
[2016-09-01] MEDS: Insulin LISPRO* 1 UNITS UNIT SUBCUT SCH ×2 (09:11→13:00)
[2016-09-01] MEDS: Aspirin TAB* 325 MG PO SCH (09:12)
[2016-09-01 16:09] VITALS: BP 156/93
[2016-09-01] MEDS ORDERED: Nicotine Patch Removal NOTE PATCH OFF SCH (21:00)
[2016-09-01] MEDS ORDERED: LEVOTHYROXINE 100 MCG PO SCH (21:22)
--- NOTE | 2016-09-02 13:44 | TRS ---
TRANSFER SUMMARY: DATE OF ADMISSION: 08/30/16 DATE OF TRANSFER: 09/01/16 PROVIDER: Ailyn Pluknett NP ATTENDING PHYSICIAN: Judith Shirley DO* (report dictated by Ailyn Plunkett NP) PRIMARY CARE PROVIDER: No PCP. FIRE INVESTIGATION LIEUTENANT: Anup Alston MD DISPOSITION: Transferred to [facility] for subacute rehab. PRIMARY DISCHARGE DIAGNOSES: 1. Ischemic stroke. 2. Current tobacco abuse. 3. Ischemic lacunar infarct with right hemiparesis. SECONDARY DIAGNOSES: 1. Diabetes. 2. History of migraines. 3. Hypertension. 4. Gastroesophageal reflux disease. 5. Distant history of atrial flutter. 6. Hypothyroidism. DISCHARGE MEDICATIONS: 1. Acetaminophen 650 mg p.o. q.6 hours p.r.n. 2. Albuterol 2 puffs INH q.6 hours p.r.n. 3. Aspirin 325 mg p.o. daily. 4. Lipitor 40 mg p.o. daily. 5. Dulcolax suppository 10 mg per rectum daily p.r.n. 6. Depakote ER 1000 mg p.o. at bedtime for migraine prophylaxis. 7. Colace 100 mg p.o. b.i.d. 8. Heparin 5000 units subcu q.8 hours. 9. Insulin Lantus 10 units subcu q.24 hours. 10. Lispro sliding scale a.c. and at bedtime. 11. Lisinopril 5 mg p.o. daily. 12. Milk of magnesia 30 mL p.o. q.6 hours p.r.n. 13. Melatonin 3 mg p.o. at bedtime. 14. Nicotine patch 21 mg/24 hours 1 patch transdermal daily. 15. Senokot 2 tabs p.o. at bedtime p.r.n. 16. Levoxyl 225 mcg p.o. at bedtime. HISTORY OF PRESENT ILLNESS AND HOSPITAL COURSE: Please see history and physical by Dr. Bryson for full admission details, but in summary, this is a 56- year-old male with a past medical history of distant atrial flutter, current tobacco abuse, and hypertension, who presented to the emergency department on with right- sided weakness and slurred speech. On admission, a CT of the brain showed most likely an early MCA infarct on the left. She underwent a brain MRI, which showed "acute infarct in the left temporal insula extending into the left posterior internal capsule." She was seen in consultation by neurologist, Dr. Walton, who notes this is a pure motor hemiparesis from a posterior limb internal capsule lacunar infarct most likely from atherosclerotic disease with risk factors being hypertension and diabetes. The patient does have a distant history of atrial fibrillation/flutter and there is possible history of PFO, but he does not believe the mechanism to be likely cardioembolic and did not recommend anticoagulation. Recommendation was for aspirin 325 mg daily. The patient has significant right hemiparesis worst on the upper extremities and unable to move it independently on her own. Her right lower leg has some residual hemiparalysis, but she is able to move it independently, but states that her leg drags. She also has continued to have slurred speech but this seems to be slightly improving daily. She has remained hemodynamically stable and has remained afebrile. She underwent a swallow evaluation, which she passed and has been doing well with pills and eating normal diet. The patient will be transferred to [facility] for subacute rehab. The patient has history of migraine and which she takes Depakote for migraine prophylaxis. Per Dr. Walton, he recommended the amitriptyline that she takes as well be stopped on admission due to hypertension. It is possible that this could be restarted in the future once her blood pressures have better control. She was started on lisinopril for better blood pressure control. The patient underwent a transthoracic echocardiogram, which did not include a bubble study; however, a prior study from a [facility] from 11/02/05 did demonstrate a presence of a PFO. The patient's echo showed her to have a global left ventricular wall motion contractility within normal limits with estimated ejection fraction of 55% to 60%, which was an improvement from an EF of 45% to 50% in 2016. DISCHARGE PLAN: Discharged to [facility] today. The patient should be referred to [facility] at discharge for better diabetes control. Smoking cessation. TIME SPENT: Approximately 60 minutes was spent on this [place] [id number]/[facility] #: [id number]
--- NOTE | 2016-09-10 17:46 | ED ---
Brittany Johnson Matthew, scribed for Kobi David MD on 08/30/16 at 0734 . Neurological HPI - HPI Summary HPI Summary: A 56 y/o female presents to the ED with slurred speech and unsteady gait since 03:45 this morning. The patient states that she woke-up at 03:34 not feeling well with associated weakness and mild headache. She was unable to hold a cup of coffee this morning, and fell while on her way to her car. She denies numbness/tingling, difficulty finding words, dizziness, and lightheadedness. The patient was last seen well at 22:[address] Vargas was presents at the patient's arrival and did an initial evaluation. At that time, he ordered a CODE NG diagnostic imaging and testing. - History of Current Complaint Chief Complaint: EDAltMentalStatus Stated Complaint: STROKE LIKE SYMPTOMS Time Seen by Provider: 08/30/16 07:19 Hx Obtained From: Patient Onset/Duration: Still Present Timing: Constant Onset Severity: Moderate Current Severity: Moderate Neurological Deficit Location: RUE, RLE Pain Intensity: 1 Pain Scale Used: 0-10 Numeric Character: Motor Weakness, Impaired Speech Associated Signs and Symptoms: Positive: Unsteady Gait, Headache, Weakness, Impaired Speech - Slurred TPA Considered: No - The last known well time is outside of the tPA window. - Additional Pertinent History Primary Care Physician: [id number] - Allergy/Home Medications Allergies/Adverse Reactions: Allergies Allergy/AdvReac Type Severity Reaction Status Date / Time Ciprofloxacin [From Cipro] Allergy Unknown Verified 08/30/16 09:38 Reaction Details Metronidazole [From Flagyl] Allergy Unknown Verified 08/30/16 09:38 Reaction Details Home Medications: Home Medications Levothyroxine Sodium [Levoxyl] 25 mcg PO BEDTIME 08/30/16 [History Confirmed ] PMH/Surg Hx/FS Hx/Imm Hx Endocrine/Hematology History: Reports: Hx Thyroid Disease Denies: Hx Diabetes Cardiovascular History: Denies: Hx Hypertension, Hx Pacemaker/ICD Respiratory History: Reports: Hx Chronic Obstructive Pulmonary Disease (COPD) History: Denies: Hx Renal Disease Sensory History: Denies: Hx Hearing Aid Neurological History: Reports: Hx Migraine Psychiatric History: Denies: Hx Depression, Hx Panic Disorder - Surgical History Surgery Procedure, Year, and Place: Rt SHOULDER - RTC -. KELLY KNEE REPLACEMENTS. TARSAL TUNNEL - Lt ANKLE. APPENDECTOMY. CHOLECYSTECTOMY. CYST - Rt FALLOPIAN & OVARY REMOVED. LUMPECTOMY - Lt BREAST - BENIGN Hx Anesthesia Reactions: No Infectious Disease History: Denies: History Other Infectious Disease, Traveled Outside the [place] in Last 30 Days - Family History Known Family History: Positive: Unknown, Cardiac Disease - father - Social History Alcohol Use: Rare Substance Use Type: Reports: None Hx Tobacco Use: Yes Smoking Status (MU): Current Every Day Smoker Type: Cigarettes Amount Used/How Often: 5 day max Review of Systems Constitutional: Negative Negative: Fever, Chills Eyes: Negative Negative: Erythema ENT: Negative Negative: Sore Throat Cardiovascular: Negative Negative: Chest Pain Respiratory: Negative Negative: Shortness Of Breath Gastrointestinal: Negative Negative: Abdominal Pain, Vomiting, Nausea Genitourinary: Negative Negative: dysuria, hematuria Musculoskeletal: Negative Negative: Myalgia, Edema Skin: Negative Negative: Rash Neurological: Other - Unsteady Gait Positive: Headache - mild, Weakness, Slurred Speech Psychological: Normal All Other Systems Reviewed And Are Negative: Yes Physical Exam Triage Information Reviewed: Yes Vital Signs On Initial Exam: Initial Vitals Temp Pulse Resp BP Pulse Ox 98.2 F 109 18 183/107 95 08/30/16 07:01 08/30/16 07:01 08/30/16 07:01 08/30/16 07:01 08/30/16 07:01 Vital Signs Reviewed: Yes Appearance: Positive: No Pain Distress, Well-Nourished Skin: Positive: Warm, Dry Eyes: Positive: Conjunctiva Clear ENT: Positive: Normal ENT inspection Dental: Negative: Cervical Lymphadenopathy Neck: Positive: Supple, Nontender, No Lymphadenopathy Respiratory/Lung Sounds: Positive: Breath Sounds Present, Other - Normal Effort. Negative: Rales, Rhonchi, Stridor, Tracheal Deviation, Wheezes Cardiovascular: Positive: Tachycardia, Other - Heart sounds normal; Intact distal pulses; The pedal pulses are 2+ and symmetric. Radial pulses are 2+ and symmetric. Negative: Murmur Abdomen Description: Positive: Nontender, Soft, Other: - No Rebound. Negative: Distended, Guarding Bowel Sounds: Positive: Present Neurological: Positive: Facial Droop - Right sided, Slurred Speech, Ataxic Gait - Right sided, Dysarthric Aphasia, Pronator Drift Present - RUE and RLE, Other - Tongue deviation to the right Diagnostics - Vital Signs Vital Signs Temp Pulse Resp BP Pulse Ox 08/30/16 07:01 98.2 F 109 18 183/107 95 - Laboratory Result Diagrams: 08/30/16 07:41 08/30/16 08:14 Lab Statement: Any lab studies that have been ordered have been reviewed, and results considered in the medical decision making process. - Radiology CXR Xray Interpretation: No Acute Changes - IMPRESSION: Elevated lung volumes suggest obstructive lung disease. No acute cardiopulmonary process evident. Radiology Interpretation Completed By: Radiologist - CT Brain CT CT Interpretation: Positive (See Comments) - IMPRESSION: THERE IS SOME LOSS AND CROWDING OF THE SULCI IN THE LEFT FRONTAL LOBE AND THE LEFT ANTERIOR SYLVIAN FISSURE. EARLY MCA INFARCT ON THE LEFT CANNOT BE EXCLUDED. NO HEMORRHAGE IS NOTED. CT Interpretation Completed By: Radiologist Head CTA CT Interpretation: No Acute Changes - IMPRESSION: 1. NO EVIDENCE FOR CAROTID STENOSIS OR LARGE VESSEL INTRACRANIAL THROMBUS. 2. SLIGHTLY LIMITED EXAM. CT Interpretation Completed By: Radiologist - EKG 07:12 Cardiac Rate: Tachycardia - 106 bpm EKG Rhythm: Sinus Tachycardia EKG Interpretation: NO STEMI NIH Scale - NIH Scale Level of Consciousness: Alert/Keenly Responsive Ask Patient the Month and His/Her Age: Both Correct Ask Pt to Open/Close Eyes and Surgery Manager/Release Non-Paretic Hand: Both Correctly Best Gaze (Only Horizontal Eye Movement): Normal Visual Field Testing: No Visual Loss Facial Paresis-Pt to Smile & Close Eyes or Grimace Symmetry: Minor Paralysis Motor Function - Right Arm: Drifts LT 10 seconds Motor Function - Left Arm: No Drift-Holds 10 Seconds Motor Function - Right Leg: Drifts LT 10 seconds Motor Function - Left Leg: No Drift-Holds 10 Seconds Limb Ataxia-Must be out of Proportion to Weakness Present: Present in One Limb Sensory (Use Pinprick to Test Arms/Legs/Trunk/Face): Normal Best Language (Describe Picture, Name Items): No Aphasia Dysarthria (Read Several Words): Slurs Some Words Extinction and Inattention: No Abnormality Total Score: 5 Course/Dx - Course Assessment/Plan: A 56 y/o female presents to the ED with slurred speech and unsteady gait since 03:45 this morning. The patient states that she woke-up at 03:34 not feeling well with associated weakness and mild headache. Labs were reviewed. CXR shows no acute cardiopulmonary disease. Brain CT shows some loss and crowding of the sulci in the left frontal lobe and the left anterior sylvian fissure. early mca infarct on the left cannot be excluded. Head CTA shows no evidence for carotid stenosis or large vessel intracranial thrombus. EKG shows sinus tachycardia at 106 bpm. Discussed the case with Dr. Bryson will admit the patient into her services for further work-up and management. - Diagnoses Provider Diagnoses: CVA-ISCHENIS,ACUTE - Physician Notifications Discussed Care of Patient With: Dr. Bryson (Hospitalist) at 09:45 -- Notified of patient's history and will admit the patient into her services. Dr. Walton ( Neurology) at 09:59 -- Notified of patient's history and will come to evaluate the patinet. Discharge - Discharge Plan Condition: Guarded Disposition: ADMITTED TO [facility] The documentation as recorded by the Birttany qureshi Matthew accurately reflects the service I personally performed and the decisions made by , Kobi David MD.
== END 2016-09-01 16:50 | DRG 45 ==
LOC: ED 06:52 → MEDTELE 09:38
PROVIDERS: ADMIT Internal Medicine; ATTEND Hospitalist
DX: I63.9 Cerebral infarction, unspecified (principal); G81.91 Hemiplegia, unspecified affecting right dominant side; I48.92 Unspecified atrial flutter; Z68.41 Body mass index [BMI] 40.0-44.9, adult; Q21.1 Atrial septal defect; G43.909 Migraine, unspecified, not intractable, without status migrainosus; I10 Essential (primary) hypertension; I48.91 Unspecified atrial fibrillation; R47.81 Slurred speech; E66.9 Obesity, unspecified; R29.810 Facial weakness; K21.9 Gastro-esophageal reflux disease without esophagitis; E11.9 Type 2 diabetes mellitus without complications; Z96.653 Presence of artificial knee joint, bilateral; E03.9 Hypothyroidism, unspecified; G47.33 Obstructive sleep apnea (adult) (pediatric); Z82.3 Family history of stroke; Z80.1 Family history of malignant neoplasm of trachea, bronchus and lung; E78.00 Pure hypercholesterolemia, unspecified; F17.200 Nicotine dependence, unspecified, uncomplicated; Z79.4 Long term (current) use of insulin; Z79.82 Long term (current) use of aspirin; Z79.01 Long term (current) use of anticoagulants; I25.10 Atherosclerotic heart disease of native coronary artery without angina pectoris; R47.1 Dysarthria and anarthria
CPT/HCPCS: 36415; 70450; 70496; 70498; 70551; 71010; 80048; 80053; 80061; 81003; 83036; 83605; 84443; 84484; 85025; 85610; 85730; 93005; 93306; 94760; 97530; 99284; 99406; A9270-GY; G8996-GN-CH; G8997-GN-CH; G8998-GN-CH; J0360; J1644; Q9967

== ENCOUNTER 2016-09-01 15:47 | Inpatient (IN) | payer BC ==
[2016-09-01] MEDS ORDERED: Bisacodyl SUPP* 10 MG SUPP PR PRN (17:15)
[2016-09-01] MEDS ORDERED: Senna TAB PO PRN (17:15)
[2016-09-01] MEDS ORDERED: Magnesium Hydroxide LIQ* 30 ML UDC PO PRN (17:15)
[2016-09-01] MEDS ORDERED: Dextrose 50% Syringe 50 ML* 25 GM/50 ML SYRINGE IV PUSH PRN (19:05)
[2016-09-01] MEDS ORDERED: Albuterol HFA INHALER* 8 gm MDI INH PRN (19:08)
[2016-09-01] MEDS ORDERED: CMCS Melatonin (NF) 3 MG TAB PO SCH (21:00)
[2016-09-01] MEDS ORDERED: LEVOTHYROXINE 25 MCG PO SCH (21:00)
[2016-09-01] MEDS: LEVOXYL 100 MCG PO SCH (21:15)
[2016-09-01] MEDS: Divalproex ER TAB(*) 500 MG PO SCH (21:15)
[2016-09-01] MEDS: LEVOTHYROXINE 25 MCG PO SCH (21:16)
[2016-09-01] MEDS: Insulin GLARGINE(*) 1 UNITS UNIT SUBCUT SCH (21:18)
[2016-09-01] MEDS: Heparin VIAL(*) 5000 UNITS/ML VIAL (FIVE THOUSAND) SUBCUT SCH (21:18)
[2016-09-01] MEDS: Insulin LISPRO* 1 UNITS UNIT SUBCUT SCH (21:19)
[2016-09-01] MEDS: Docusate CAP* 100 MG PO SCH (21:22)
--- NOTE | 2016-09-01 21:27 | HP ---
HISTORY AND PHYSICAL: DATE OF ADMISSION: 09/01/16 HISTORY OF PRESENT ILLNESS: Wendy Napoles is a 56-year-old female. The patient woke up acutely on the morning of 08/30/16 with weakness of her right side and slurred speech. She had weakness of a right side and she felt like she was breathing funny. Her called 911. The patient was brought to our emergency room. A CAT scan of her brain showed a possible left-sided CVA. She was admitted to [facility]. She had a consult done with Dr. Walton. It was felt she had a pure motor hemiparesis from a posterior limb internal capsule lacunar infarct. She was put on telemetry. No arrhythmias were seen. An echocardiogram was done. It showed an ejection fraction of 55% to 60%. She did have a CESAR done in November 2015, which showed a PFO. It was felt the patient's stroke was likely due to a combination of diabetes and hypertension. Anticoagulation was not recommended. The patient was felt to have PT/OT and speech therapy notes. She is now being admitted for inpatient rehab so that she might return to independent living. PAST MEDICAL HISTORY: Significant for migraine headaches. She normally took both amitriptyline and Depakote for that. She has a history of atrial flutter. She was cardioverted in November of 2015. After cardioversion, she was initially placed on Xarelto but later saw Dr. Alston in followup. Xarelto was discontinued in June. She has a history of gastroesophageal reflux disease. As mentioned, she has a history of diabetes but did not take any medicines for it. She has had bilateral knee replacement surgery and sleep apnea as well as hypothyroidism. CURRENT MEDICATIONS: Include: 1. Aspirin a day. 2. Lipitor. 3. Depakote. 4. She is on lisinopril for blood pressure. 5. Nicotine patch. 6. Levoxyl. ALLERGIES: The patient has allergies to CIPROFLOXACIN as well as FLAGYL. SOCIAL HISTORY: She is a smoker, nondrinker. She lives with her in a one- story house with three steps to enter. 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 REVIEW OF SYSTEMS: The patient reports no current shortness of breath or chest pain. PHYSICAL EXAMINATION VITAL SIGNS: The patient's temperature is 97.8, blood pressure is 156/97, pulse is 97, respirations 18. HEENT: I did not detect the facial droop although the patient has a significant dysarthria. NECK: Supple. LUNGS: Sounded clear to auscultation bilaterally. HEART: Sounds were regular. S1, S2 were audible. ABDOMEN: Soft and nontender. EXTREMITIES: Her right upper extremity was flaccid. He right lower extremity felt like it had a decreased tone. NEUROLOGIC: The patient was alert, oriented. Muscle strength, she had about 2/ 5 hand senior web developer strength on the right, could not flex or extend her elbow, could not abduct or flex her shoulder. Right leg was grossly 3/5. Her functional exam, the patient transfers with moderate amount of assistance. ASSESSMENT: Cerebrovascular accident with right hemiparesis. Her MRI of her brain showed an acute infarct in the left temporal insula extending into the left posterior internal capsule. PLAN: We are going to integrate her into a comprehensive and therapeutic rehab program with the following goals: 1. Physical Therapy will work with the patient. They are going to work on functional transfer training, ambulation training with a walker. 2. Occupational Therapy will see the patient, work on her activities of daily living including toileting and toilet transfers. 3. Speech Therapy will see the patient, work on her dysarthria, evaluate her for an aphasia or swallowing difficulties. 4. Heparin for DVT prophylaxis. 5. She currently has a Flores catheter. We are going to do Flores clamping and remove the Flores catheter. 6. SSRIs such as fluoxetine as needed for neurologic recovery. 7. For her diabetes, we are going to fingersticks 4 times a day with sliding scale insulin. We will continue her Lantus insulin. 8. Continue Levoxyl for hypothyroidism. 9. Continue lisinopril for blood pressure. We will monitor her blood pressure. 10. Advanced directives: The patient is a full code. Her is her surrogate decision maker. 11. Family training as appropriate. 12. support services tech will be closely involved to make sure that any services and equipment that the patient requires are in place prior to discharge. 13. Home with appropriate services. ESTIMATED LENGTH OF STAY: Four weeks. [id number]/[facility] #: [id number] VIKKI
[2016-09-01] MEDS: CMCS Melatonin (NF) 3 MG TAB PO SCH (22:38)
[2016-09-01] MEDS: Nicotine Patch Removal NOTE FOLLOW UP SCH (22:56)
[2016-09-02] MEDS: Heparin VIAL(*) 5000 UNITS/ML VIAL (FIVE THOUSAND) SUBCUT SCH ×3 (05:47→21:06)
[2016-09-02] MEDS ORDERED: LEVOXYL 100 MCG PO SCH (06:00)
[2016-09-02 07:00] LABS: Hematocrit 46 % (35-47); Hemoglobin 15.4 g/dl (12.0-16.0); Mean Corpuscular HGB Conc 34 g/dl (31-36); Mean Corpuscular Hemoglobin 31 pg (27-31); Mean Corpuscular Volume 93 fL (80-97); Mean Platelet Volume 8 um3 (7.4-10.4); Red Blood Count 4.93 10^6/ul (4.0-5.4); Red Cell Distribution Width 14 % (10.5-15)
[2016-09-02 07:14] LABS: Albumin 3.6 g/dL (3.2-5.2); Calcium 9.1 mg/dL (8.6-10.3); EGFR African American 94.7 (>60); EGFR Non-African American 73.7 (>60); Globulin 3.2 g/dL (2-4); Potassium 4.5 mmol/L (3.5-5.0); Total Bilirubin 0.4 mg/dL (0.2-1.0); Total Protein 6.8 g/dL (6.4-8.9)
[2016-09-02] MEDS: Insulin LISPRO* 1 UNITS UNIT SUBCUT SCH ×4 (08:14→21:06)
[2016-09-02] MEDS: Lisinopril TAB* 5 MG PO SCH (08:15)
[2016-09-02] MEDS: Aspirin EC TAB* 325 MG PO SCH (08:15)
[2016-09-02] MEDS: Nicotine PATCH 21 MG/24 HR* PATCH TRANSDERM SCH (08:16)
[2016-09-02] MEDS: Docusate CAP* 100 MG PO SCH ×2 (08:16→21:09)
--- NOTE | 2016-09-02 11:27 | PN ---
Progress Note - Progress Note Note: Consult for DM education was ordered on the patient when she was admitted to . Attempted consult on 08/31/16, but the patient was sleeping at that time. Visited the patient today and she was sleeping. Spoke briefly with her , who suggested that I come singer back tender to when she will be going home. Providing DM education may be more beneficial closer to the discharge date, especially since this will include instructions on use of a glucometer. I left some educational information with the patient's . Discussed this with the social sciences department chair, Ani, and left our contact information with her. She will call our office 3-4 days prior to discharge.
--- NOTE | 2016-09-02 12:16 | PMRUTEAM ---
PMRU: Goals Current Status: Nursing: Current Status Skin Deviations [Right Arm] Bruise Physical Therapy: Current Status Bed Mobility Assistance MOD ASSIST Transfer Moblility Assistance MIN ASSIST Ambulation Assistance MIN ASSIST IN // BARS 8 FT Ambulation Assistive Devices GOING TO BE HEMIWALKER Stairs Assistance NOT TESTED Stairs Recommended Devices One Rail Number of Stairs 3 OCCUPATIONAL THERAPY CURRENT STATUS:MOD A UPPER BODY DRESSING. TOTAL A LOWER BODY DRESSING. MOD A BATHING. TOTAL ASSIST TOILETING. FUNCTIONAL TRANSFERS MOD ASSIST OF 2. SPEECH THERAPY CURRENT STATUS: INTELLIGIBILITY 70%. ONGOING COGNITIVE ASSESSMENT. Social Work: Current Status Discharge Plan return home with home care svs and family support Potential for Family Training pt's is involved and attentive Anticipated Discharge Home Destination Discharge With Home care svs and family support Goals: PHYSICAL THERAPY GOALS: INDEPENDENT TRANSFERS AND AMBULATION WITH A QUAD CANE. INDEPENDENT 10 STAIRS WITH 1 RAIL. OCCUPATIONAL THERAPY GOALS: MODIFIED INDEPENDENT DRESSING, BATHING, TOILETING. SPEECH THERAPY GOALS: IMPROVE INTELLIGIBILITY TO 100%. 90% ACCURACY COGNITIVE AND LINGUISTIC TASKS. Social Work: Goals Discharge Plan return home with home care svs and family support Potential for Family Training pt's is involved and attentive Anticipated Discharge Home Destination Discharge With Home care svs and family support Care Plan: Care Plan Cardiovascular- Improve/Maintain Start: 09/01/16 21:46 Freq: QSHIFT Status: Active Target: Activity Type Activity Date Activity User E-Sign Co-Sign Detail Recorded Client Recorded Date Recorded By Document 09/02/16 03:39 [id number] 09/02/16 03:42 [id number] 09/02/16 03:39 PMRU Outcome: Cardiovascular Vital Signs q Shift for 48hrs Then BID Yes Daily Weight Ordered No Current Cardiovascular Outcome/Goal Maintain/ Achieve Baseline HR, BP , Perfusion Maintain/ Improve Perfusion Maintain/ Achieve Hemodynamic Stability Progression Toward Outcome/Goal Progressing DVT Prophylaxis- Improve/Maintain Start: 09/01/16 21:46 Freq: QSHIFT Status: Active Target: Activity Type Activity Date Activity User E-Sign Co-Sign Detail Recorded Client Recorded Date Recorded By Document 09/02/16 03:39 [id number] 09/02/16 03:42 [id number] 09/02/16 03:39 PMRU Outcome: DVT Prophylaxis Outcome/Goals Remains Free of DVT Complies with DVT Prophylaxis /Treatment Demonstrates Knowledge of DVT Prevention/ Treatment Progression Toward Outcome/Goals Progressing Discharge Planning - Improve/Maintain Start: 09/01/16 21:46 Freq: QSHIFT Status: Active Target: Activity Type Activity Date Activity User E-Sign Co-Sign Detail Recorded Client Recorded Date Recorded By Document 09/02/16 03:39 [id number] 09/02/16 03:42 [id number] 09/02/16 03:39 PMRU Outcome: Discharge Planning Update Patient Family No Outcome/Goals Demonstrates Understanding of Discharge Plan Progression Toward Outcome/Goals Progressing Education-Improve/Maintain Start: 09/01/16 21:46 Freq: QSHIFT Status: Active Target: Activity Type Activity Date Activity User E-Sign Co-Sign Detail Recorded Client Recorded Date Recorded By Document 09/02/16 03:39 [id number] 09/02/16 03:42 [id number] 09/02/16 03:39 PMRU Outcome: Education Outcome/Goals Demonstrate/ Verbalize Understanding of Written Discharge Instructions Demonstrates Skills Encourage Questions Progression Toward Outcome/Goals Progressing /GI-Improve/Maintain Start: 09/01/16 21:46 Freq: QSHIFT Status: Active Target: Activity Type Activity Date Activity User E-Sign Co-Sign Detail Recorded Client Recorded Date Recorded By Document 09/02/16 03:39 [id number] 09/02/16 03:42 [id number] 09/02/16 03:39 PMRU Outcome: Genitourinary/ Gastrointestinal Genitourinary- Outcome/Goals Maintain/ Achieve Adequate Urinary Output Gastrointestinal-Outcome/Goals Maintain/ Achieve Bowel Regularity in Accordance with Pt's Baseline Progression Toward Outcome/Goals - Progressing Metabolic Status- Improve/Maintain Start: 09/01/16 21:46 Freq: QSHIFT Status: Active Target: Activity Type Activity Date Activity User E-Sign Co-Sign Detail Recorded Client Recorded Date Recorded By Document 09/02/16 03:39 [id number] 09/02/16 03:42 [id number] 09/02/16 03:39 PMRU Outcome: Metabolic Status Have Fingersticks Been Ordered Yes Fingerstick Order Frequency AC & HS Outcome/Goals Maintain/ Improve Metabolic Status Progression Toward Outcome/Goals Progressing Respiratory - Improve/Maintain Start: 09/01/16 21:46 Freq: QSHIFT Status: Active Target: Activity Type Activity Date Activity User E-Sign Co-Sign Detail Recorded Client Recorded Date Recorded By Document 09/02/16 03:39 [id number] 09/02/16 03:42 [id number] 09/02/16 03:39 PMRU Outcome: Respiratory Does Patient Have a Trach No Outcome/Goals Maintain/ Improve O2 Sat per MD Order Maintain/ Improve Activity Tolerance Progression Toward Outcome/Goals Progressing Safety- Improve/Maintain Start: 09/01/16 21:46 Freq: QSHIFT Status: Active Target: Activity Type Activity Date Activity User E-Sign Co-Sign Detail Recorded Client Recorded Date Recorded By Document 09/02/16 03:39 [id number] 09/02/16 03:42 [id number] 09/02/16 03:39 PMRU Outcome: Safety Outcome/Goals Remain Free of Injury or Harm Cooperates with Safety Measures for Least Restrictive Environment Prevent Falls/ Injury Progression Toward Outcome/Goals Progressing Outcome/Goals Met Cooperates with Safety Measures for Least Restrictive Environment Medicine Note: Length of Stay: [4 WEEKS] Anticipated Discharge Destination: Home Tentative Discharge Date: [09/30/16] Discharged to: [HOME]
[2016-09-02] MEDS: Atorvastatin* 40 MG TAB PO SCH (17:29)
[2016-09-02] MEDS: Insulin GLARGINE(*) 1 UNITS UNIT SUBCUT SCH (21:07)
[2016-09-02] MEDS: LEVOTHYROXINE 25 MCG PO SCH (21:09)
[2016-09-02] MEDS: Divalproex ER TAB(*) 500 MG PO SCH (21:10)
[2016-09-02] MEDS: LEVOXYL 100 MCG PO SCH (21:10)
[2016-09-02] MEDS: CMCS Melatonin (NF) 3 MG TAB PO SCH (21:10)
[2016-09-02] MEDS: Nicotine Patch Removal NOTE FOLLOW UP SCH (21:39)
[2016-09-03] MEDS: Heparin VIAL(*) 5000 UNITS/ML VIAL (FIVE THOUSAND) SUBCUT SCH ×3 (07:06→22:02)
[2016-09-03] MEDS: Nicotine PATCH 21 MG/24 HR* PATCH TRANSDERM SCH (09:44)
[2016-09-03] MEDS: Aspirin EC TAB* 325 MG PO SCH (09:50)
[2016-09-03] MEDS: Lisinopril TAB* 5 MG PO SCH (09:50)
[2016-09-03] MEDS: Insulin LISPRO* 1 UNITS UNIT SUBCUT SCH ×4 (09:50→22:06)
[2016-09-03] MEDS: Docusate CAP* 100 MG PO SCH ×2 (10:01→21:55)
[2016-09-03] MEDS ORDERED: Al Hydrox/Mg Hydrox/Simet LIQ* 30 ML UDC PO PRN (10:34)
[2016-09-03] MEDS: Atorvastatin* 40 MG TAB PO SCH (17:49)
[2016-09-03] MEDS: Divalproex ER TAB(*) 500 MG PO SCH (21:58)
[2016-09-03] MEDS: Nicotine Patch Removal NOTE FOLLOW UP SCH (21:58)
[2016-09-03] MEDS: LEVOXYL 100 MCG PO SCH (21:59)
[2016-09-03] MEDS: CMCS Melatonin (NF) 3 MG TAB PO SCH (21:59)
[2016-09-03] MEDS: LEVOTHYROXINE 25 MCG PO SCH (21:59)
[2016-09-03] MEDS: diPHENhydraMINE PO* 25 MG PO PRN (22:00)
[2016-09-03] MEDS: Insulin GLARGINE(*) 1 UNITS UNIT SUBCUT SCH (22:05)
[2016-09-04] MEDS: Heparin VIAL(*) 5000 UNITS/ML VIAL (FIVE THOUSAND) SUBCUT SCH ×3 (06:20→21:19)
[2016-09-04] MEDS: Lisinopril TAB* 5 MG PO SCH (08:41)
[2016-09-04] MEDS: Aspirin EC TAB* 325 MG PO SCH (08:42)
[2016-09-04] MEDS: Insulin LISPRO* 1 UNITS UNIT SUBCUT SCH ×4 (08:42→21:16)
[2016-09-04] MEDS: Nicotine PATCH 21 MG/24 HR* PATCH TRANSDERM SCH (09:03)
[2016-09-04] MEDS: Docusate CAP* 100 MG PO SCH ×2 (09:04→21:14)
[2016-09-04] MEDS: Atorvastatin* 40 MG TAB PO SCH (17:18)
[2016-09-04] MEDS: CMCS Melatonin (NF) 3 MG TAB PO SCH (21:13)
[2016-09-04] MEDS: Divalproex ER TAB(*) 500 MG PO SCH (21:13)
[2016-09-04] MEDS: LEVOXYL 100 MCG PO SCH (21:14)
[2016-09-04] MEDS: LEVOTHYROXINE 25 MCG PO SCH (21:14)
[2016-09-04] MEDS: Insulin GLARGINE(*) 1 UNITS UNIT SUBCUT SCH (21:18)
[2016-09-04] MEDS: Nicotine Patch Removal NOTE FOLLOW UP SCH (21:21)
[2016-09-04] MEDS: diPHENhydraMINE PO* 25 MG PO PRN (22:02)
[2016-09-05] MEDS: Heparin VIAL(*) 5000 UNITS/ML VIAL (FIVE THOUSAND) SUBCUT SCH ×3 (06:02→20:59)
[2016-09-05] MEDS: Insulin LISPRO* 1 UNITS UNIT SUBCUT SCH ×4 (07:57→20:56)
[2016-09-05] MEDS: Aspirin EC TAB* 325 MG PO SCH (07:58)
[2016-09-05] MEDS: Lisinopril TAB* 5 MG PO SCH (07:58)
[2016-09-05] MEDS: Docusate CAP* 100 MG PO SCH ×2 (07:58→20:52)
[2016-09-05] MEDS: Nicotine PATCH 21 MG/24 HR* PATCH TRANSDERM SCH (07:59)
[2016-09-05] MEDS: Atorvastatin* 40 MG TAB PO SCH (17:17)
[2016-09-05] MEDS: Divalproex ER TAB(*) 500 MG PO SCH (20:53)
[2016-09-05] MEDS: LEVOTHYROXINE 25 MCG PO SCH (20:54)
[2016-09-05] MEDS: CMCS Melatonin (NF) 3 MG TAB PO SCH (20:54)
[2016-09-05] MEDS: LEVOXYL 100 MCG PO SCH (20:55)
[2016-09-05] MEDS: Insulin GLARGINE(*) 1 UNITS UNIT SUBCUT SCH (20:57)
[2016-09-05] MEDS: Nicotine Patch Removal NOTE FOLLOW UP SCH (21:33)
[2016-09-05] MEDS: diPHENhydraMINE PO* 25 MG PO PRN (22:45)
[2016-09-06] MEDS: Heparin VIAL(*) 5000 UNITS/ML VIAL (FIVE THOUSAND) SUBCUT SCH ×3 (05:38→21:53)
[2016-09-06] MEDS: Insulin LISPRO* 1 UNITS UNIT SUBCUT SCH ×4 (08:05→21:52)
[2016-09-06] MEDS: Lisinopril TAB* 5 MG PO SCH (08:06)
[2016-09-06] MEDS: Aspirin EC TAB* 325 MG PO SCH (08:06)
[2016-09-06] MEDS: Nicotine PATCH 21 MG/24 HR* PATCH TRANSDERM SCH (08:06)
[2016-09-06] MEDS: Docusate CAP* 100 MG PO SCH ×2 (08:20→20:07)
--- NOTE | 2016-09-06 12:53 | PMRUTEAM ---
PMRU: Goals Current Status: Nursing: Current Status Skin Deviations [Right Arm] Bruise Physical Therapy: Current Status Bed Mobility Assistance Independent Transfer Moblility Assistance Supervision,Contact Guard Assist Transfer/Bed Mobility Wes Walker Recommended Devices Ambulation Assistance Contact Guard Assist,Min Assist Ambulation Assistive Devices Wes Walker Number of Feet Patient 150 Ambulated Stairs Assistance Independent Stairs Recommended Devices One Rail Number of Stairs 3 Occupational Therapy: Current Status Upper Body Dressing Min Assist Lower Body Dressing Max Asst Bathing Mod Assist,Max Asst Toileting Max Asst Toilet Transfer Min Assist Shower Transfer Min Assist Eating Supervision Rec Therapy: Current Status Summary of Assessment and RT assessment complete and pt. is aware of RT Clinical Impression services. Pt. has leisure activities to engage in with her but was open to continued leisure visits. Treatment Goals Pt. will engage in leisure activities while on the unit. Treatment Plan Provide RT services and encourage involvement. Social Work: Current Status Discharge Plan return home with home care svs and family support Potential for Family Training pt's is involved and attentive Anticipated Discharge Home Destination Discharge With home care svs and family support Nutrition: Current Status Monitoring Pt eating well, meeting needs. Last BM 3/4 - on appropriate meds. Will benefit from diabetes education (clinical trial educator has assessed and will see when d/c is closer) and we will also provide nutrition/diabetes education with spouse and pt. Pt with prior dx of DM but apparant denial and has not been on any meds. Will likely need to learn insulin administration and SBGM. Speech: Current Status Assessment Patient progressing nicely, as she required a decrease in cueing for correct phonetic placement of the phoneme "s" and "sh". Targeted diaphragmatic breathing for coordination of respiration/phonation this date. She will continue to benefit from skilled GUEST ADVISOR services to increase intelligibility for improved safety, function, and independence of daily living tasks. Goals: Physical Therapy: Initial Goals Bed Mobility Assistance Independent Transfer Mobility Assistance Independent Transfer/Bed Mobility Straight Cane Recommended Devices Ambulation Independent Ambulation Recommended Devices Straight Cane Ambulation Distance 150 Stairs Assistance Independent Stair Recommended Devices One Rail Number of Stairs 10 Occupational Therapy: Initial Goals Goals to be Completed in (Days 21-28 ) Upper Body Bathing Routine Modified Independent with Lower Body Bathing Routine Modified Independent with Upper Body Dressing Routine Modified Independent with Lower Body Dressing Routine Modified Independent with Toilet Hygeine and Clothing Modified Independent with Management Routine Toilet Transfer Routine Modified Independent with Step-In Shower Transfer Modified Independent with Routine Functional Transfers for ADL Modified Independent with Grooming Routine Modified Independent with Feeding Routine Modified Independent with Nutrition: Goals Intervention Goals 1. Spouse/pt will receive appropriate diabetes and diet education prior to d/c. 2. Maintain adequate glycemic control per inpatient parameters. 3. Maintain adequate oral intake to support maintenance of lean body mass w/o contributing to undesirable weight gain. 4. Achieve/maintain bowel regularity w/o constipation. Speech: Goals Speech Goal 1 Patient will increase intelligibility to 95-100% Speech Evaluation Status Goal 70% 1 Speech Current Status Goal 1 70% Goal 1 Comments LTO: Patient will increase intelligibility to 95- 100%. ST) Patient will independently complete oral motor exercises with increase in speed and accuracy. Status: Patient independently performed oral motor exercises following HEP handout; lingual coordination appears to be improving. 2) Patient will complete tongue twisters at the paragraph level with 90% intelligibility/accuray. Status: Patient completed tongue twisters at the phrase level with mod cues and models for correct phonetic placement, specifically for phonemes "s" and "sh"; decrease in lingual protrusion noted for "s" and "sh" this date. Patient benefited from visual feedback via mirror for motor speech tasks. 3) Patient will independently state and use strategies for increased intelligibility during informal conversation. Status: Goal not directly targeted this date. *Difficulty with airflow for fricatives was noted, as patient was running out of air during motor speech tasks, indicating difficulty with coordination of respiration/phonetion (dysarthria of the respiratory tract). New goal added : 4) Patient will independently use diaphragmatic breathing while reading sentences aloud. Status: - Patient taught/educated on diaphragmatic breathing and coordination of respiration/ phonation. She was able to use diaphragmatic breathing while at rest with models and max cues. Counted in intervals of 4's with continued verbal cues required. Attempted to use diaphragmatic breathing while reading sentences, but patient became frustrated. All goals ongoing. Speech Goal 2 Patient will complete short term memory tasks with at least 90% accuracy. Speech Goal 2 Evaluation 66% for immediate; 83% for delayed Status Speech Goal 2 Current Status 66% for immediate; 83% for delayed Speech Goal 2 Comments LTO: Patient will complete short term memory tasks with at least 90% accuracy. ST) The patient will independently recall and state 4 memory strategies. Status: Goal not directly targeted this date. 2)The patient will independently complete functional short term memory tasks with at least 90% accuracy, with use of strategies as needed. Status: Goal not directly targeted this date. All goals ongoing. Social Work: Goals Discharge Plan return home with home care svs and family support Potential for Family Training pt's is involved and attentive Anticipated Discharge Home Destination Discharge With home care svs and family support Care Plan: Care Plan ADL's - Improve/Maintain Start: 09/01/16 21:46 Freq: DAILY Status: Active Target: Activity Type Activity Date Activity User E-Sign Co-Sign Detail Recorded Client Recorded Date Recorded By Document 09/05/16 15:00 [id number] [id number] 09/05/16 15:00 [id number] 09/05/16 15:00 PMRU Outcome: ADL's/ADL Transfers Orders/Interventions Occupational Therapy Evaluation & Treatment Communication Tool in Patient Room Device Yes Patient to receive OT 5x/wk for 60-120 Therex min/day Self Care Management Group Therapy Neuromuscular ReEducation UE/LE ADL's with Assist Yes: Ania ADL Transfers with Assist Yes: Ania Toileting: Transfers,Clothing Management Yes: Ania ,Hygeine w/Assist Progression Toward Outcome/Goals Progressing Cardiovascular- Improve/Maintain Start: 09/01/16 21:46 Freq: DAILY Status: Active Target: Activity Type Activity Date Activity User E-Sign Co-Sign Detail Recorded Client Recorded Date Recorded By Document 09/06/16 11:58 [id number] 09/06/16 11:59 [id number] 09/06/16 11:58 PMRU Outcome: Cardiovascular Vital Signs q Shift for 48hrs Then BID Yes Daily Weight Ordered No Current Cardiovascular Outcome/Goal Maintain/ Achieve Baseline HR, BP , Perfusion Maintain/ Improve Perfusion Maintain/ Achieve Hemodynamic Stability Progression Toward Outcome/Goal Progressing Communication-Improve/Maintain Start: 09/02/16 15:22 Freq: DAILY Status: Active Target: Activity Type Activity Date Activity User E-Sign Co-Sign Detail Recorded Client Recorded Date Recorded By Document 09/06/16 11:58 [id number] [email or web address] 09/06/16 11:59 [id number] 09/06/16 11:58 PMRU Outcome: Communication/Cognitive Status Outcome/Goals Makes Needs Known Effectively Other Outcomes/Goals 1)Patient will increase intelligibility to 95-100%. 2)Patient will complete short term memory tasks with at least 90% accuracy. Progression Toward Outcomes/Goals Progressing Outcome/Goals Met Comment Patient completed diaphragmatic breathing tasks with max cues and models required. Increase in accuracy for phonetic placement of "s " and "sh" during motor speech tasks. Coping/Psych-Improve/Maintain Start: 09/05/16 10:05 Freq: DAILY Status: Active Target: Activity Type Activity Date Activity User E-Sign Co-Sign Detail Recorded Client Recorded Date Recorded By Document 09/06/16 11:58 [id number] 09/06/16 11:59 [id number] 09/06/16 11:58 PMRU Outcome: Coping/Psychosocial Coping Outcome/Goals Verbalization of Acceptance of Rehab Admit Utilization of Appropriate Problem Solving Techniques Willingness to Participate in Treatment Plan and Basic Needs Utilization of Available Support Systems Absence of Destructive Behavior to Self/Others Psychosocial Outcome/Goals Maintain/ Improve Emotional Health Demonstrates Knowledge of Healthy Coping Mechanisms Available Cooperate/ Participate in Plan Progression Toward Outcome/Goals - Progressing Coping Progression Toward Outcome/Goals - Progressing Psychosocial DVT Prophylaxis- Improve/Maintain Start: 09/01/16 21:46 Freq: DAILY Status: Active Target: Activity Type Activity Date Activity User E-Sign Co-Sign Detail Recorded Client Recorded Date Recorded By Document 09/06/16 11:58 [id number] [email or web address] 09/06/16 11:59 [id number] 09/06/16 11:58 PMRU Outcome: DVT Prophylaxis Outcome/Goals Remains Free of DVT Complies with DVT Prophylaxis /Treatment Demonstrates Knowledge of DVT Prevention/ Treatment TEDS Stockings on Every AM, Off at HS Progression Toward Outcome/Goals Progressing Discharge Planning - Improve/Maintain Start: 09/01/16 21:46 Freq: DAILY Status: Active Target: Activity Type Activity Date Activity User E-Sign Co-Sign Detail Recorded Client Recorded Date Recorded By Document 09/06/16 11:58 [id number] [email or web address] 09/06/16 11:59 [id number] 09/06/16 11:58 PMRU Outcome: Discharge Planning Identify Patient Needs yes Update Patient Family No Outcome/Goals Demonstrates Understanding of Discharge Plan Progression Toward Outcome/Goals Progressing Education-Improve/Maintain Start: 09/01/16 21:46 Freq: DAILY Status: Active Target: Activity Type Activity Date Activity User E-Sign Co-Sign Detail Recorded Client Recorded Date Recorded By Document 09/06/16 11:58 [id number] 09/06/16 11:59 [id number] 09/06/16 11:58 PMRU Outcome: Education Outcome/Goals Demonstrate/ Verbalize Understanding of Written Discharge Instructions Demonstrates Skills Encourage Questions Progression Toward Outcome/Goals Progressing /GI-Improve/Maintain Start: 09/01/16 21:46 Freq: DAILY Status: Active Target: Activity Type Activity Date Activity User E-Sign Co-Sign Detail Recorded Client Recorded Date Recorded By Document 09/06/16 11:58 [id number] [email or web address] 09/06/16 11:59 [id number] 09/06/16 11:58 PMRU Outcome: Genitourinary/ Gastrointestinal Genitourinary- Outcome/Goals Maintain/ Achieve Adequate Urinary Output Remain Free of Hospital- Acquired UTI Gastrointestinal-Outcome/Goals Maintain/ Achieve Bowel Regularity in Accordance with Pt's Baseline Prevent Constipation Laxatives as Ordered Progression Toward Outcome/Goals - Progressing Progression Toward Outcome/Goals - GI Progressing Metabolic Status- Improve/Maintain Start: 09/01/16 21:46 Freq: DAILY Status: Active Target: Activity Type Activity Date Activity User E-Sign Co-Sign Detail Recorded Client Recorded Date Recorded By Document 09/06/16 11:58 [id number] [email or web address] 09/06/16 11:59 [id number] 09/06/16 11:58 PMRU Outcome: Metabolic Status Have Fingersticks Been Ordered Yes Fingerstick Order Frequency AC & HS Outcome/Goals Maintain/ Improve Metabolic Status Progression Toward Outcome/Goals Progressing Mobility- Improve/Maintain Start: 09/02/16 17:44 Freq: DAILY Status: Active Target: Activity Type Activity Date Activity User E-Sign Co-Sign Detail Recorded Client Recorded Date Recorded By Document 09/03/16 17:34 [id number] 09/03/16 17:34 [id number] 09/03/16 17:34 PMRU Outcome: Mobility Physical Therapy Evaluation and Yes Treatment Activity OOB with Assistance Yes Device Yes Assistance Yes Patient to be seen 5x/wk for 60-120 min/ Therex day for: Mobility Training Gait Training W/C Mobility Balance Outcome/Goals Maintain/ Achieve Baseline Mobility Status Improve Mobility Status Demonstrates Proper Use of Assistive Devices Free from Complications of Immobility Progression Toward Outcome/Goals Progressing Bed Mobility Yes: independent Transfers Yes: independent Gait x ft Yes: independent with SC 150' Up/Down Stairs Yes: independent with 1 rail 10 stairs Respiratory - Improve/Maintain Start: 09/01/16 21:46 Freq: DAILY Status: Active Target: Activity Type Activity Date Activity User E-Sign Co-Sign Detail Recorded Client Recorded Date Recorded By Document 09/06/16 11:58 [id number] [email or web address] 09/06/16 11:59 [id number] 09/06/16 11:58 PMRU Outcome: Respiratory Does Patient Have a Trach No Outcome/Goals Maintain/ Improve O2 Sat per MD Order Maintain/ Improve Activity Tolerance Progression Toward Outcome/Goals Progressing Safety- Improve/Maintain Start: 09/01/16 21:46 Freq: DAILY Status: Active Target: Activity Type Activity Date Activity User E-Sign Co-Sign Detail Recorded Client Recorded Date Recorded By Document 09/06/16 11:58 [id number] [email or web address] 09/06/16 11:59 [id number] 09/06/16 11:58 PMRU Outcome: Safety Outcome/Goals Remain Free of Injury or Harm Cooperates with Safety Measures for Least Restrictive Environment Prevent Falls/ Injury Progression Toward Outcome/Goals Progressing Outcome/Goals Met Cooperates with Safety Measures for Least Restrictive Environment Outcome/Goals Met Comment PA in place Medicine Note: Length of Stay: 2 1/2 weeks Anticipated Discharge Destination: Home Tentative Discharge Date: 09/30/16 Discharged to: home
[2016-09-06] MEDS: Atorvastatin* 40 MG TAB PO SCH (17:02)
[2016-09-06] MEDS: LEVOTHYROXINE 25 MCG PO SCH (20:04)
[2016-09-06] MEDS: LEVOXYL 100 MCG PO SCH (20:04)
[2016-09-06] MEDS: Divalproex ER TAB(*) 500 MG PO SCH (20:05)
[2016-09-06] MEDS: CMCS Melatonin (NF) 3 MG TAB PO SCH (20:08)
[2016-09-06] MEDS: Nicotine Patch Removal NOTE FOLLOW UP SCH (21:53)
[2016-09-07] MEDS: Heparin VIAL(*) 5000 UNITS/ML VIAL (FIVE THOUSAND) SUBCUT SCH ×3 (05:40→21:13)
[2016-09-07] MEDS: Aspirin EC TAB* 325 MG PO SCH (07:45)
[2016-09-07] MEDS: metFORMIN* 500 MG TAB PO SCH ×2 (07:45→16:59)
[2016-09-07] MEDS: Docusate CAP* 100 MG PO SCH ×2 (07:45→20:56)
[2016-09-07] MEDS: Lisinopril TAB* 5 MG PO SCH (07:45)
[2016-09-07] MEDS: Insulin LISPRO* 1 UNITS UNIT SUBCUT SCH ×4 (07:45→20:59)
[2016-09-07] MEDS: Nicotine PATCH 21 MG/24 HR* PATCH TRANSDERM SCH (09:02)
[2016-09-07] MEDS: Atorvastatin* 40 MG TAB PO SCH (16:59)
[2016-09-07] MEDS: Divalproex ER TAB(*) 500 MG PO SCH (20:56)
[2016-09-07] MEDS: CMCS Melatonin (NF) 3 MG TAB PO SCH (20:56)
[2016-09-07] MEDS: LEVOXYL 100 MCG PO SCH (20:57)
[2016-09-07] MEDS: LEVOTHYROXINE 25 MCG PO SCH (20:57)
[2016-09-07] MEDS: diPHENhydraMINE PO* 25 MG PO PRN (20:59)
[2016-09-07] MEDS: Nicotine Patch Removal NOTE FOLLOW UP SCH (21:13)
[2016-09-08] MEDS: Heparin VIAL(*) 5000 UNITS/ML VIAL (FIVE THOUSAND) SUBCUT SCH ×3 (06:07→21:21)
[2016-09-08] MEDS: Insulin LISPRO* 1 UNITS UNIT SUBCUT SCH ×4 (08:16→21:20)
[2016-09-08] MEDS: Lisinopril TAB* 5 MG PO SCH (08:17)
[2016-09-08] MEDS: Aspirin EC TAB* 325 MG PO SCH (08:17)
[2016-09-08] MEDS: metFORMIN* 500 MG TAB PO SCH ×2 (08:17→17:10)
[2016-09-08] MEDS: Docusate CAP* 100 MG PO SCH ×2 (08:17→21:18)
[2016-09-08] MEDS: Nicotine PATCH 21 MG/24 HR* PATCH TRANSDERM SCH (08:18)
[2016-09-08] MEDS: Atorvastatin* 40 MG TAB PO SCH (17:11)
[2016-09-08] MEDS: Divalproex ER TAB(*) 500 MG PO SCH (21:17)
[2016-09-08] MEDS: diPHENhydraMINE PO* 25 MG PO PRN (21:18)
[2016-09-08] MEDS: LEVOTHYROXINE 25 MCG PO SCH (21:18)
[2016-09-08] MEDS: CMCS Melatonin (NF) 3 MG TAB PO SCH (21:19)
[2016-09-08] MEDS: LEVOXYL 100 MCG PO SCH (21:19)
[2016-09-08] MEDS: Nicotine Patch Removal NOTE FOLLOW UP SCH (21:49)
[2016-09-08] MEDS: Acetaminophen TAB* 325 MG PO PRN (23:31)
[2016-09-09] MEDS: Heparin VIAL(*) 5000 UNITS/ML VIAL (FIVE THOUSAND) SUBCUT SCH ×3 (06:20→22:14)
[2016-09-09 06:27] LABS: Hematocrit 45 % (35-47); Hemoglobin 15.2 g/dl (12.0-16.0); Mean Corpuscular HGB Conc 34 g/dl (31-36); Mean Corpuscular Hemoglobin 31 pg (27-31); Mean Corpuscular Volume 93 fL (80-97); Mean Platelet Volume 8 um3 (7.4-10.4); Red Blood Count 4.82 10^6/ul (4.0-5.4); Red Cell Distribution Width 14 % (10.5-15); White Blood Count 8.6 10^3/ul (3.5-10.8)
[2016-09-09 07:03] LABS: Albumin 3.8 g/dL (3.2-5.2); BUN/Creatinine Ratio 23.7 (8-20); Calcium 9.2 mg/dL (8.6-10.3); EGFR African American 100.5 (>60); EGFR Non-African American 78.2 (>60); Potassium 4.3 mmol/L (3.5-5.0); Total Bilirubin 0.5 mg/dL (0.2-1.0); Total Protein 6.8 g/dL (6.4-8.9)
[2016-09-09] MEDS: Insulin LISPRO* 1 UNITS UNIT SUBCUT SCH ×4 (08:09→21:00)
[2016-09-09] MEDS: Lisinopril TAB* 5 MG PO SCH (08:10)
[2016-09-09] MEDS: metFORMIN* 500 MG TAB PO SCH ×2 (08:10→16:43)
[2016-09-09] MEDS: Nicotine PATCH 21 MG/24 HR* PATCH TRANSDERM SCH (08:10)
[2016-09-09] MEDS: Docusate CAP* 100 MG PO SCH ×2 (08:11→21:07)
[2016-09-09] MEDS: Aspirin EC TAB* 325 MG PO SCH (08:11)
[2016-09-09] MEDS: FLUoxetine CAP* 10 MG PO SCH (08:11)
[2016-09-09] MEDS: Atorvastatin* 40 MG TAB PO SCH (16:42)
[2016-09-09] MEDS: Divalproex ER TAB(*) 500 MG PO SCH (21:01)
[2016-09-09] MEDS: CMCS Melatonin (NF) 3 MG TAB PO SCH (21:01)
[2016-09-09] MEDS: LEVOTHYROXINE 25 MCG PO SCH (21:02)
[2016-09-09] MEDS: LEVOXYL 100 MCG PO SCH (21:03)
[2016-09-09] MEDS: Nicotine Patch Removal NOTE FOLLOW UP SCH (21:09)
[2016-09-09] MEDS: diPHENhydraMINE PO* 25 MG PO PRN (21:17)
[2016-09-10] MEDS: Heparin VIAL(*) 5000 UNITS/ML VIAL (FIVE THOUSAND) SUBCUT SCH ×3 (06:17→21:29)
[2016-09-10] MEDS: Insulin LISPRO* 1 UNITS UNIT SUBCUT SCH ×4 (08:05→21:28)
[2016-09-10] MEDS: metFORMIN* 500 MG TAB PO SCH ×2 (09:06→16:43)
[2016-09-10] MEDS: FLUoxetine CAP* 10 MG PO SCH (09:06)
[2016-09-10] MEDS: Lisinopril TAB* 5 MG PO SCH (09:06)
[2016-09-10] MEDS: Docusate CAP* 100 MG PO SCH ×2 (09:06→21:28)
[2016-09-10] MEDS: Aspirin EC TAB* 325 MG PO SCH (09:06)
[2016-09-10] MEDS: Nicotine PATCH 21 MG/24 HR* PATCH TRANSDERM SCH (09:07)
[2016-09-10] MEDS: Atorvastatin* 40 MG TAB PO SCH (16:43)
[2016-09-10] MEDS: Divalproex ER TAB(*) 500 MG PO SCH (21:26)
[2016-09-10] MEDS: LEVOXYL 100 MCG PO SCH (21:27)
[2016-09-10] MEDS: LEVOTHYROXINE 25 MCG PO SCH (21:27)
[2016-09-10] MEDS: Nicotine Patch Removal NOTE FOLLOW UP SCH (21:30)
[2016-09-10] MEDS: diPHENhydraMINE PO* 25 MG PO PRN (21:46)
[2016-09-10] MEDS: CMCS Melatonin (NF) 3 MG TAB PO SCH (21:46)
[2016-09-11] MEDS: Heparin VIAL(*) 5000 UNITS/ML VIAL (FIVE THOUSAND) SUBCUT SCH ×3 (06:20→22:04)
[2016-09-11] MEDS: Docusate CAP* 100 MG PO SCH ×2 (10:06→21:09)
[2016-09-11] MEDS: Aspirin EC TAB* 325 MG PO SCH (10:06)
[2016-09-11] MEDS: metFORMIN* 500 MG TAB PO SCH ×3 (10:06→16:59)
[2016-09-11] MEDS: Lisinopril TAB* 5 MG PO SCH (10:06)
[2016-09-11] MEDS: FLUoxetine CAP* 10 MG PO SCH (10:06)
[2016-09-11] MEDS: Nicotine PATCH 14 MG/24 HR* PATCH TRANSDERM SCH (10:07)
[2016-09-11] MEDS: Insulin LISPRO* 1 UNITS UNIT SUBCUT SCH ×4 (10:10→21:10)
[2016-09-11] MEDS: Acetaminophen TAB* 325 MG PO PRN (16:14)
[2016-09-11] MEDS: Atorvastatin* 40 MG TAB PO SCH (16:59)
[2016-09-11] MEDS: Divalproex ER TAB(*) 500 MG PO SCH (21:09)
[2016-09-11] MEDS: LEVOTHYROXINE 25 MCG PO SCH (21:10)
[2016-09-11] MEDS: LEVOXYL 100 MCG PO SCH (21:11)
[2016-09-11] MEDS: Nicotine Patch Removal NOTE FOLLOW UP SCH (21:11)
[2016-09-11] MEDS: CMCS Melatonin (NF) 3 MG TAB PO SCH (21:11)
[2016-09-11] MEDS: diPHENhydraMINE PO* 25 MG PO PRN (22:04)
[2016-09-12] MEDS: Heparin VIAL(*) 5000 UNITS/ML VIAL (FIVE THOUSAND) SUBCUT SCH ×3 (06:31→21:41)
[2016-09-12] MEDS: Insulin LISPRO* 1 UNITS UNIT SUBCUT SCH ×4 (07:58→21:40)
[2016-09-12] MEDS: Nicotine PATCH 14 MG/24 HR* PATCH TRANSDERM SCH (07:59)
[2016-09-12] MEDS: FLUoxetine CAP* 10 MG PO SCH (07:59)
[2016-09-12] MEDS: metFORMIN* 500 MG TAB PO SCH ×3 (07:59→17:13)
[2016-09-12] MEDS: Aspirin EC TAB* 325 MG PO SCH (07:59)
[2016-09-12] MEDS: Lisinopril TAB* 5 MG PO SCH (07:59)
[2016-09-12] MEDS: Docusate CAP* 100 MG PO SCH ×2 (08:00→21:37)
[2016-09-12] MEDS: Acetaminophen TAB* 325 MG PO PRN (09:21)
[2016-09-12] MEDS: Atorvastatin* 40 MG TAB PO SCH (17:13)
[2016-09-12] MEDS: Divalproex ER TAB(*) 500 MG PO SCH (21:34)
[2016-09-12] MEDS: LEVOXYL 100 MCG PO SCH (21:35)
[2016-09-12] MEDS: LEVOTHYROXINE 25 MCG PO SCH (21:36)
[2016-09-12] MEDS: Nicotine Patch Removal NOTE FOLLOW UP SCH (21:47)
[2016-09-12] MEDS: diPHENhydraMINE PO* 25 MG PO PRN (22:48)
[2016-09-12] MEDS: CMCS Melatonin (NF) 3 MG TAB PO SCH (22:48)
[2016-09-13] MEDS: Heparin VIAL(*) 5000 UNITS/ML VIAL (FIVE THOUSAND) SUBCUT SCH ×3 (05:07→22:29)
[2016-09-13] MEDS: Insulin LISPRO* 1 UNITS UNIT SUBCUT SCH ×4 (07:41→21:07)
[2016-09-13] MEDS: Lisinopril TAB* 5 MG PO SCH (08:31)
[2016-09-13] MEDS: metFORMIN* 500 MG TAB PO SCH ×3 (08:31→17:00)
[2016-09-13] MEDS: Docusate CAP* 100 MG PO SCH ×2 (08:32→21:10)
[2016-09-13] MEDS: Nicotine PATCH 14 MG/24 HR* PATCH TRANSDERM SCH (08:32)
[2016-09-13] MEDS: FLUoxetine CAP* 10 MG PO SCH (08:32)
[2016-09-13] MEDS: Aspirin EC TAB* 325 MG PO SCH (09:03)
--- NOTE | 2016-09-13 12:38 | PMRUTEAM ---
PMRU: Goals Current Status: Nursing: Current Status Skin Deviations [Right Arm] Bruise Skin Deviation Description [ healing Right Arm] Drain Type [Right Arm] Hemovac Physical Therapy: Current Status Bed Mobility Assistance Not Tested Transfer Moblility Assistance Supervision Transfer/Bed Mobility Large Base Quad Cane Recommended Devices Ambulation Assistance Supervision Ambulation Assistive Devices Large Base Quad Cane Number of Feet Patient 150' Ambulated Stairs Assistance Supervision,Contact Guard Assist Stairs Recommended Devices One Rail Number of Stairs 5 Curb 2 or More Person Assist Occupational Therapy: Current Status Upper Body Dressing Min Assist Lower Body Dressing Max Asst Bathing Supervision Toileting Contact Guard Assist,Min Assist Toilet Transfer Contact Guard Assist Shower Transfer Min Assist Eating Supervision Rec Therapy: Current Status Summary of Assessment and RT assessment complete and pt. is aware of RT Clinical Impression services. Pt. has leisure activities to engage in with her but was open to continued leisure visits. Treatment Goals Pt. will engage in leisure activities while on the unit. Treatment Plan Provide RT services and encourage involvement. Social Work: Current Status Discharge Plan return home with home care svs and family support Potential for Family Training pt's is involved and attentive Anticipated Discharge Home Destination Discharge With home care svs and family support Nutrition: Current Status Monitoring Intake appears adequate: 60-100% of meals; 100% B and L today. Independent with meals. BG remains adequately controlled. BMs 09/09, 09/10. No changes to intervention to suggest at this time; will continue to follow. Speech: Current Status Assessment Patient demonstrated consistent progress this session. She presented with an increase in accuracy and a decrease in required cueing for tongue twisters and phoneme specific "sh" speech task. She also demonstrated a decrease in cueing required for using diaphragmatic breathing throughout motor speech task. She will continue to benefit from skilled NIGHT CLUB MANAGER services to increase intelligibility for improved safety, function, and independence of daily living tasks. Goals: Physical Therapy: Initial Goals Bed Mobility Assistance Independent Transfer Mobility Assistance Independent Transfer/Bed Mobility Straight Cane Recommended Devices Ambulation Independent Ambulation Recommended Devices Straight Cane Ambulation Distance 150 Stairs Assistance Independent Stair Recommended Devices One Rail Number of Stairs 10 Physical Therapy: Updated Goals Bed Mobility Assistance Independent Transfer Mobility Assistance Independent Transfer/Bed Mobility Straight Cane Recommended Devices Ambulation Assistance Independent Ambulation Assistive Devices Straight Cane Ambulation Distance (ft) 150' Stairs Assistance Independent Stairs Recommended Devices One Rail Number of Stairs 10 Occupational Therapy: Initial Goals Goals to be Completed in (Days 21-28 ) Upper Body Bathing Routine Modified Independent with Lower Body Bathing Routine Modified Independent with Upper Body Dressing Routine Modified Independent with Lower Body Dressing Routine Modified Independent with Toilet Hygeine and Clothing Modified Independent with Management Routine Toilet Transfer Routine Modified Independent with Step-In Shower Transfer Modified Independent with Routine Functional Transfers for ADL Modified Independent with Grooming Routine Modified Independent with Feeding Routine Modified Independent with Nutrition: Goals Intervention Goals 1. Pt verbalizes plan for continued improved glycemic control upon d/c. 2. Maintain adequate glycemic control per inpatient parameters. 3. Maintain adequate oral intake to support maintenance of lean body mass w/o contributing to undesirable weight gain. 4. Achieve/maintain bowel regularity w/o constipation. Speech: Goals Speech Goal 1 Patient will increase intelligibility to 95-100% Speech Evaluation Status Goal 70% 1 Speech Current Status Goal 1 80% Goal 1 Comments LTO: Patient will increase intelligibility to 95- 100%. ST) Patient will independently complete oral motor exercises with increase in speed and accuracy. Status: Patient independently performed oral motor exercises following HEP handout; continued labiobuccal and lingual weakness observed. 2) Patient will complete tongue twisters at the paragraph level with 90% intelligibility/accuray. Status: - Patient read tongue twisters aloud of increase length with 80% accuracy given min cues. - Patient read sentences of increasing length with phoneme /sh/ with 80% accuracy given moderate verbal cues. 3) Patient will independently state and use strategies for increased intelligibility during informal conversation. Status: - Patient independently used strategy of overarticulation while reading tongue twisters. 4) Patient will independently use diaphragmatic breathing while reading sentences aloud. Status: - Moderate cues required for diaphragmatic breathing during tongue twisters and /sh/ sentences. She required reminders to take a breath in the middle of a longer sentence and also to use airflow for fricative phonemes. All goals ongoing. Speech Goal 2 Patient will complete short term memory tasks with at least 90% accuracy. Speech Goal 2 Evaluation 66% for immediate; 83% for delayed Status Speech Goal 2 Current Status 66% for immediate; 83% for delayed Speech Goal 2 Comments LTO: Patient will complete short term memory tasks with at least 90% accuracy. ST) The patient will independently recall and state 4 memory strategies. Status: Discussed/reviewed memory strategies with patient; she stated memory was not an area of deficit for her. Left HEP handout with strategies , will re-assess/target as needed. 2)The patient will independently complete functional short term memory tasks with at least 90% accuracy, with use of strategies as needed. Status: Goal not directly targeted this date; see above for discussion. All goals ongoing. Social Work: Goals Discharge Plan return home with home care svs and family support Potential for Family Training pt's is involved and attentive Anticipated Discharge Home Destination Discharge With home care svs and family support Care Plan: Care Plan ADL's - Improve/Maintain Start: 09/01/16 21:46 Freq: DAILY Status: Active Target: Activity Type Activity Date Activity User E-Sign Co-Sign Detail Recorded Client Recorded Date Recorded By Document 09/12/16 14:53 [id number] 09/12/16 14:53 [id number] 09/12/16 14:53 PMRU Outcome: ADL's/ADL Transfers Orders/Interventions Occupational Therapy Evaluation & Treatment Communication Tool in Patient Room Device Yes Patient to receive OT 5x/wk for 60-120 Therex min/day Self Care Management Group Therapy Neuromuscular ReEducation UE/LE ADL's with Assist Yes: Ania ADL Transfers with Assist Yes: Ania Toileting: Transfers,Clothing Management Yes: Ania ,Hygeine w/Assist Progression Toward Outcome/Goals Progressing Cardiovascular- Improve/Maintain Start: 09/01/16 21:46 Freq: DAILY Status: Active Target: Activity Type Activity Date Activity User E-Sign Co-Sign Detail Recorded Client Recorded Date Recorded By Document 09/13/16 08:00 [id number] 09/13/16 11:28 [id number] 09/13/16 08:00 PMRU Outcome: Cardiovascular Vital Signs q Shift for 48hrs Then BID Yes Daily Weight Ordered No Current Cardiovascular Outcome/Goal Maintain/ Achieve Baseline HR, BP , Perfusion Maintain/ Improve Perfusion Maintain/ Achieve Hemodynamic Stability Progression Toward Outcome/Goal Progressing Communication-Improve/Maintain Start: 09/02/16 15:22 Freq: DAILY Status: Active Target: Activity Type Activity Date Activity User E-Sign Co-Sign Detail Recorded Client Recorded Date Recorded By Document 09/13/16 00:23 [id number] 09/13/16 00:24 [id number] 09/13/16 00:23 PMRU Outcome: Communication/Cognitive Status Outcome/Goals Makes Needs Known Effectively Other Outcomes/Goals 1)Patient will increase intelligibility to 95-100%. 2)Patient will complete short term memory tasks with at least 90% accuracy. Progression Toward Outcomes/Goals Progressing Coping/Psych-Improve/Maintain Start: 09/05/16 10:05 Freq: DAILY Status: Active Target: Activity Type Activity Date Activity User E-Sign Co-Sign Detail Recorded Client Recorded Date Recorded By Document 09/13/16 08:00 [id number] [email or web address] 09/13/16 11:28 [id number] 09/13/16 08:00 PMRU Outcome: Coping/Psychosocial Coping Outcome/Goals Verbalization of Acceptance of Rehab Admit Utilization of Appropriate Problem Solving Techniques Willingness to Participate in Treatment Plan and Basic Needs Utilization of Available Support Systems Absence of Destructive Behavior to Self/Others Psychosocial Outcome/Goals Maintain/ Improve Emotional Health Demonstrates Knowledge of Healthy Coping Mechanisms Available Cooperate/ Participate in Plan Progression Toward Outcome/Goals - Progressing Coping Progression Toward Outcome/Goals - Progressing Psychosocial DVT Prophylaxis- Improve/Maintain Start: 09/01/16 21:46 Freq: DAILY Status: Complete Target: Activity Type Activity Date Activity User E-Sign Co-Sign Detail Recorded Client Recorded Date Recorded By Document 09/08/16 17:35 [id number] 09/08/16 17:36 [id number] 09/08/16 17:35 PMRU Outcome: DVT Prophylaxis Outcome/Goals Remains Free of DVT Complies with DVT Prophylaxis /Treatment Demonstrates Knowledge of DVT Prevention/ Treatment TEDS Stockings on Every AM, Off at HS Outcome/Goals Met Remains Free of DVT Demonstrates Knowledge of DVT Prevention/ Treatment TEDS Stockings on Every AM, Off at HS Discharge Planning - Improve/Maintain Start: 09/01/16 21:46 Freq: DAILY Status: Active Target: Activity Type Activity Date Activity User E-Sign Co-Sign Detail Recorded Client Recorded Date Recorded By Document 09/13/16 00:23 [id number] 09/13/16 00:24 [id number] 09/13/16 00:23 PMRU Outcome: Discharge Planning Identify Patient Needs yes Update Patient Family No Outcome/Goals Demonstrates Understanding of Discharge Plan Progression Toward Outcome/Goals Progressing Education-Improve/Maintain Start: 09/01/16 21:46 Freq: DAILY Status: Active Target: Activity Type Activity Date Activity User E-Sign Co-Sign Detail Recorded Client Recorded Date Recorded By Document 09/13/16 08:00 [id number] 09/13/16 11:28 [id number] 09/13/16 08:00 PMRU Outcome: Education Outcome/Goals Demonstrate/ Verbalize Understanding of Written Discharge Instructions Demonstrates Skills Encourage Questions Other Outcome/Goals Diabetic teaching throughout shift Progression Toward Outcome/Goals Progressing Outcome/Goals Met Comment More discussion about CVA. /GI-Improve/Maintain Start: 09/01/16 21:46 Freq: DAILY Status: Active Target: Activity Type Activity Date Activity User E-Sign Co-Sign Detail Recorded Client Recorded Date Recorded By Document 09/13/16 08:00 [id number] [id number] 09/13/16 11:28 [id number] 09/13/16 08:00 PMRU Outcome: Genitourinary/ Gastrointestinal Genitourinary- Outcome/Goals Maintain/ Achieve Adequate Urinary Output Remain Free of Hospital- Acquired UTI Gastrointestinal-Outcome/Goals Maintain/ Achieve Bowel Regularity in Accordance with Pt's Baseline Prevent Constipation Laxatives as Ordered Other Outcome/Goals Pt able to wipe after urination and able to pull up her own pants except the back of the R side Progression Toward Outcome/Goals - Progressing Progression Toward Outcome/Goals - GI Progressing Outcome/Goals Met Comment pt voided on toilet Metabolic Status- Improve/Maintain Start: 09/01/16 21:46 Freq: DAILY Status: Active Target: Activity Type Activity Date Activity User E-Sign Co-Sign Detail Recorded Client Recorded Date Recorded By Document 09/13/16 08:00 [id number] [id number] 09/13/16 11:28 [id number] 09/13/16 08:00 PMRU Outcome: Metabolic Status Have Fingersticks Been Ordered Yes Fingerstick Order Frequency AC & HS Outcome/Goals Maintain/ Improve Metabolic Status Progression Toward Outcome/Goals Progressing Mobility- Improve/Maintain Start: 09/02/16 17:44 Freq: DAILY Status: Active Target: Activity Type Activity Date Activity User E-Sign Co-Sign Detail Recorded Client Recorded Date Recorded By Document 09/12/16 14:47 [id number] 09/12/16 14:47 [id number] 09/12/16 14:47 PMRU Outcome: Mobility Physical Therapy Evaluation and Yes Treatment Activity OOB with Assistance Yes Device Yes Assistance Yes Patient to be seen 5x/wk for 60-120 min/ Therex day for: Mobility Training Gait Training W/C Mobility Balance Outcome/Goals Maintain/ Achieve Baseline Mobility Status Improve Mobility Status Demonstrates Proper Use of Assistive Devices Free from Complications of Immobility Progression Toward Outcome/Goals Progressing Bed Mobility Yes: independent Transfers Yes: independent Gait x ft Yes: independent with SC 150' Up/Down Stairs Yes: independent with 1 rail 10 stairs Respiratory - Improve/Maintain Start: 09/01/16 21:46 Freq: DAILY Status: Active Target: Activity Type Activity Date Activity User E-Sign Co-Sign Detail Recorded Client Recorded Date Recorded By Document 09/13/16 08:00 [id number] 09/13/16 11:28 [id number] 09/13/16 08:00 PMRU Outcome: Respiratory Does Patient Have a Trach No Outcome/Goals Maintain/ Improve O2 Sat per MD Order Maintain/ Improve Activity Tolerance Progression Toward Outcome/Goals Progressing Safety- Improve/Maintain Start: 09/01/16 21:46 Freq: DAILY Status: Complete Target: Activity Type Activity Date Activity User E-Sign Co-Sign Detail Recorded Client Recorded Date Recorded By Document 09/06/16 18:05 [id number] 09/06/16 18:06 [id number] 09/06/16 18:05 PMRU Outcome: Safety Outcome/Goals Remain Free of Injury or Harm Cooperates with Safety Measures for Least Restrictive Environment Prevent Falls/ Injury Outcome/Goals Met Remain Free of Injury or Harm Cooperates with Safety Measures for Least Restrictive Environment Medicine Note: Length of Stay: 2 1/2 weeks Anticipated Discharge Destination: Home Tentative Discharge Date: September 30, 2016 Discharged to: Home
[2016-09-13] MEDS: Atorvastatin* 40 MG TAB PO SCH (17:00)
[2016-09-13] MEDS: LEVOTHYROXINE 25 MCG PO SCH (21:08)
[2016-09-13] MEDS: LEVOXYL 100 MCG PO SCH (21:09)
[2016-09-13] MEDS: Divalproex ER TAB(*) 500 MG PO SCH (21:10)
[2016-09-13] MEDS: diPHENhydraMINE PO* 25 MG PO PRN (22:20)
[2016-09-13] MEDS: CMCS Melatonin (NF) 3 MG TAB PO SCH (22:20)
[2016-09-13] MEDS: Nicotine Patch Removal NOTE FOLLOW UP SCH (22:28)
[2016-09-14] MEDS: Heparin VIAL(*) 5000 UNITS/ML VIAL (FIVE THOUSAND) SUBCUT SCH ×3 (05:23→21:18)
[2016-09-14] MEDS: Insulin LISPRO* 1 UNITS UNIT SUBCUT SCH ×4 (08:13→20:24)
[2016-09-14 08:41] LABS: Albumin 3.8 g/dL (3.2-5.2); BUN/Creatinine Ratio 17.8 (8-20); EGFR African American 105.3 (>60); EGFR Non-African American 81.9 (>60); Globulin 2.9 g/dL (2-4); Potassium 4.3 mmol/L (3.5-5.0); Total Bilirubin 0.4 mg/dL (0.2-1.0); Total Protein 6.7 g/dL (6.4-8.9)
[2016-09-14] MEDS: Acetaminophen TAB* 325 MG PO PRN (08:53)
[2016-09-14] MEDS: metFORMIN* 500 MG TAB PO SCH ×3 (09:40→17:05)
[2016-09-14] MEDS: Lisinopril TAB* 5 MG PO SCH (09:40)
[2016-09-14] MEDS: Nicotine PATCH 14 MG/24 HR* PATCH TRANSDERM SCH (09:41)
[2016-09-14] MEDS: FLUoxetine CAP* 10 MG PO SCH (09:41)
[2016-09-14] MEDS: Aspirin EC TAB* 325 MG PO SCH (09:41)
--- NOTE | 2016-09-14 09:47 | RAD ---
HISTORY: Numbness to left arm COMPARISONS: August 30, 2016, MRI dated August 22, 2016 TECHNIQUE: Multiple contiguous axial CT scans were obtained of the head without intravenous contrast. FINDINGS: HEMORRHAGE/INFARCT: There is hypoattenuation noted within the frontal norris radiata and left basal ganglia measuring approximately 1.9 cm in size on axial image 14. This is developed from previous examination and is suggestive of subacute nonhemorrhagic infarct. Elsewhere, there is no hemorrhage or acute infarct. MASSES/SHIFT: There is no mass or shift. EXTRA-AXIAL SPACES: There are no extra-axial fluid collections. SULCI AND VENTRICLES: The sulci and ventricles are normal in size and position for the patient's stated age. CEREBRUM: As noted above, there is focal hypoattenuation within the left basal ganglia and frontal white matter consistent with subacute nonhemorrhagic infarct. When compared to the previous MRI, this has extended in size accounting for differences in technique BRAINSTEM: There are no focal parenchymal abnormalities. CEREBELLUM: There are no focal parenchymal abnormalities. VESSELS: The vessels are grossly normal. PARANASAL SINUSES: The paranasal sinuses are clear. ORBITS: The orbits are unremarkable. BONES AND SOFT TISSUE: No bone or soft tissue abnormalities are noted. OTHER: None IMPRESSION: FINDINGS SUGGESTIVE OF SUBACUTE NONHEMORRHAGIC INFARCT INVOLVING THE LEFT BASAL GANGLIA AND FRONTAL WHITE MATTER
[2016-09-14] MEDS: Docusate CAP* 100 MG PO SCH ×2 (11:20→21:23)
[2016-09-14] MEDS: Atorvastatin* 40 MG TAB PO SCH (17:05)
--- NOTE | 2016-09-14 17:49 | CONS ---
NEUROLOGICAL CONSULTATION: DATE OF CONSULT: 09/14/16 HISTORY OF PRESENT ILLNESS: This is a 56-year-old woman I am asked to evaluate for a possible TIA today. She was at roughly 8 o'clock this morning eating oatmeal and all of a sudden developed a heaviness in her left hand and arm with some numbness mostly in the left hand, but also going into the left arm. She had no numbness in her leg or her face. There were no other symptoms. No headache. No visual symptoms. Of note, she is on the rehab unit following a stroke she had on 08/30/16, she had woke up with right-sided weakness and slurred speech and went on and had a stroke on MRI scan in her left temporal insular extending into the left posterior internal capsule. She has a history of atrial fibrillation and flutter, but was not started on anticoagulation because it was thought that this was most likely a small vessel disease rather than embolic from the heart. She also had a workup including a CTA showing no carotid stenosis or intracranial thrombus. She had an echo which showed no source of clot. PAST MEDICAL HISTORY: Other medical problems include diabetes and she was going to attempt to be diet controlled. She was ongoing tobacco smoker up until her admission this hospitalization and has had dyslipidemia. She has had a past history of migraines and was on amitriptyline and Depakote on admission for control of her migraines and was on levothyroxine for hypothyroidism. She is status post bilateral knee replacements and has had urinary tract infections. MEDICATIONS: She is currently on: 1. Aspirin a day. 2. Lipitor. ALLERGIES: She is allergic to CIPRO and METRONIDAZOLE. SOCIAL HISTORY: She does not drink. She lives with her . She is not in rehab and was working at [employer] prior to this. REVIEW OF SYSTEMS: Negative in all 14 spheres other than HPI. PHYSICAL EXAM: Temperature is 98, pulse is 95, respiratory rate is 18, blood pressure 142/74. She is alert and oriented and has expressive aphasia, but is able to speak in full sentences. She has hesitancy and some word-finding difficulty, but is able to speak in complete sentences and make sense. She has a right facial weakness which is not complete, appears upper motor neuron, and she has a dense weakness in her right arm with 4+/5 in her leg with upgoing toe on that side. Strength in the arm is intact. Sensation intact on the left side currently. Chest: Clear. Cardiovascular: Regular rate and rhythm. Abdomen is soft with positive bowel sounds. DIAGNOSTIC STUDIES/LAB DATA: I reviewed the CT scan of her brain done today which showed a slightly large area of stroke involving her left basal ganglia, no subacute stroke I reviewed her August 30 MRI scan which showed a stroke in the similar location, possibly slightly less extensive on. I discussed these findings with Dr. Truong. I was not convinced that this was small vessel ischemic disease. I felt it was large enough, so it was possible could be embolic, but I was not sure. He felt that embolic stroke was a possibility, although he leaned on the appearance to small vessel; it was not. He said it was definitely possible that it could be an embolic stroke and it was hard to be sure one way or the other. Her recent labs showed normal CBC on the . Her glucose today was 125. CMP on the was normal other than ALT of 60. IMPRESSION: I discussed with Dr. Quan that the event today did not sound like carpal tunnel. It occurred acutely and extended outside the range of the hand and there was no physical trigger for this. There was also a heaviness described in the arm. I think that this is most likely a transient ischemic attack and given the prior stroke which on MRI scan could have been not small vessel, but embolic and this new event in the different vascular territory, it would be most reasonable to recommend anticoagulation to stop the aspirin. I discussed this with the patient prior to speaking to Dr. Quan and he is speaking to the patient at this point. Thank you for sharing her case. [id number]/[facility] #: [id number] [facility] CLINICMelinda
[2016-09-14] MEDS: LEVOXYL 100 MCG PO SCH (21:15)
[2016-09-14] MEDS: LEVOTHYROXINE 25 MCG PO SCH (21:15)
[2016-09-14] MEDS: Divalproex ER TAB(*) 500 MG PO SCH (21:17)
[2016-09-14] MEDS: CMCS Melatonin (NF) 3 MG TAB PO SCH (21:21)
[2016-09-14] MEDS: diPHENhydraMINE PO* 25 MG PO PRN (21:21)
[2016-09-14] MEDS: Nicotine Patch Removal NOTE FOLLOW UP SCH (21:23)
[2016-09-15] MEDS: Heparin VIAL(*) 5000 UNITS/ML VIAL (FIVE THOUSAND) SUBCUT SCH ×2 (06:08→14:09)
[2016-09-15] MEDS: Insulin LISPRO* 1 UNITS UNIT SUBCUT SCH ×4 (08:05→20:54)
[2016-09-15] MEDS: metFORMIN* 500 MG TAB PO SCH ×3 (08:44→17:19)
[2016-09-15] MEDS: Aspirin EC TAB* 325 MG PO SCH (08:44)
[2016-09-15] MEDS: Lisinopril TAB* 5 MG PO SCH (08:45)
[2016-09-15] MEDS: FLUoxetine CAP* 10 MG PO SCH (08:45)
[2016-09-15] MEDS: Docusate CAP* 100 MG PO SCH ×2 (08:45→20:27)
[2016-09-15] MEDS: Nicotine PATCH 14 MG/24 HR* PATCH TRANSDERM SCH (08:46)
[2016-09-15] MEDS: Atorvastatin* 40 MG TAB PO SCH (17:19)
[2016-09-15] MEDS: Divalproex ER TAB(*) 500 MG PO SCH (20:27)
[2016-09-15] MEDS: LEVOXYL 100 MCG PO SCH (20:28)
[2016-09-15] MEDS: CMCS Melatonin (NF) 3 MG TAB PO SCH (20:28)
[2016-09-15] MEDS: LEVOTHYROXINE 25 MCG PO SCH (20:28)
[2016-09-15] MEDS: Nicotine Patch Removal NOTE FOLLOW UP SCH (20:58)
[2016-09-15] MEDS: diPHENhydraMINE PO* 25 MG PO PRN (22:44)
[2016-09-16] MEDS: Insulin LISPRO* 1 UNITS UNIT SUBCUT SCH ×4 (08:00→21:09)
[2016-09-16] MEDS: metFORMIN* 500 MG TAB PO SCH ×3 (08:01→17:32)
[2016-09-16] MEDS: FLUoxetine CAP* 10 MG PO SCH (08:02)
[2016-09-16] MEDS: Lisinopril TAB* 5 MG PO SCH (08:02)
[2016-09-16] MEDS: Docusate CAP* 100 MG PO SCH ×2 (08:04→20:40)
[2016-09-16] MEDS: Nicotine PATCH 14 MG/24 HR* PATCH TRANSDERM SCH (08:05)
[2016-09-16 08:50] LABS: Hematocrit 45 % (35-47); Hemoglobin 15.2 g/dl (12.0-16.0); Mean Corpuscular HGB Conc 33 g/dl (31-36); Mean Corpuscular Hemoglobin 31 pg (27-31); Mean Corpuscular Volume 92 fL (80-97); Mean Platelet Volume 8 um3 (7.4-10.4); Red Blood Count 4.92 10^6/ul (4.0-5.4); Red Cell Distribution Width 14 % (10.5-15); White Blood Count 8.6 10^3/ul (3.5-10.8)
[2016-09-16 09:06] LABS: Albumin 3.9 g/dL (3.2-5.2); BUN/Creatinine Ratio 14.9 (8-20); EGFR African American 103.7 (>60); EGFR Non-African American 80.6 (>60); Potassium 4.1 mmol/L (3.5-5.0); Total Bilirubin 0.3 mg/dL (0.2-1.0); Total Protein 6.9 g/dL (6.4-8.9)
[2016-09-16] MEDS: Rivaroxaban TAB(*) 20 MG TAB PO SCH (09:38)
[2016-09-16] MEDS: Atorvastatin* 40 MG TAB PO SCH (17:32)
[2016-09-16] MEDS: Divalproex ER TAB(*) 500 MG PO SCH (20:39)
[2016-09-16] MEDS: CMCS Melatonin (NF) 3 MG TAB PO SCH (20:40)
[2016-09-16] MEDS: LEVOXYL 100 MCG PO SCH (20:41)
[2016-09-16] MEDS: LEVOTHYROXINE 25 MCG PO SCH (20:43)
[2016-09-16] MEDS: Nicotine Patch Removal NOTE FOLLOW UP SCH (20:43)
[2016-09-16] MEDS: diPHENhydraMINE PO* 25 MG PO PRN (22:16)
[2016-09-17] MEDS: Insulin LISPRO* 1 UNITS UNIT SUBCUT SCH ×4 (08:24→21:11)
[2016-09-17] MEDS: glipiZIDE TAB* 5 MG PO SCH (08:25)
[2016-09-17] MEDS: metFORMIN* 500 MG TAB PO SCH ×3 (08:25→17:01)
[2016-09-17] MEDS: FLUoxetine CAP* 10 MG PO SCH (08:25)
[2016-09-17] MEDS: Nicotine PATCH 14 MG/24 HR* PATCH TRANSDERM SCH (08:25)
[2016-09-17] MEDS: Lisinopril TAB* 5 MG PO SCH (08:25)
[2016-09-17] MEDS: Rivaroxaban TAB(*) 20 MG TAB PO SCH (08:25)
[2016-09-17] MEDS: Docusate CAP* 100 MG PO SCH ×2 (08:30→22:26)
[2016-09-17] MEDS: Atorvastatin* 40 MG TAB PO SCH (17:01)
[2016-09-17] MEDS: CMCS Melatonin (NF) 3 MG TAB PO SCH (22:26)
[2016-09-17] MEDS: Divalproex ER TAB(*) 500 MG PO SCH (22:26)
[2016-09-17] MEDS: LEVOXYL 100 MCG PO SCH (22:27)
[2016-09-17] MEDS: LEVOTHYROXINE 25 MCG PO SCH (22:28)
[2016-09-17] MEDS: diPHENhydraMINE PO* 25 MG PO PRN (22:29)
[2016-09-17] MEDS: Nicotine Patch Removal NOTE FOLLOW UP SCH (22:41)
[2016-09-18] MEDS: Insulin LISPRO* 1 UNITS UNIT SUBCUT SCH ×4 (08:18→20:52)
[2016-09-18] MEDS: Docusate CAP* 100 MG PO SCH ×2 (08:19→20:52)
[2016-09-18] MEDS: Nicotine PATCH 14 MG/24 HR* PATCH TRANSDERM SCH (08:19)
[2016-09-18] MEDS: glipiZIDE TAB* 5 MG PO SCH (08:19)
[2016-09-18] MEDS: Lisinopril TAB* 5 MG PO SCH (08:19)
[2016-09-18] MEDS: FLUoxetine CAP* 20 MG PO SCH (08:20)
[2016-09-18] MEDS: metFORMIN* 500 MG TAB PO SCH ×3 (08:20→17:18)
[2016-09-18] MEDS: Rivaroxaban TAB(*) 20 MG TAB PO SCH (08:20)
[2016-09-18] MEDS: Atorvastatin* 40 MG TAB PO SCH (17:18)
[2016-09-18] MEDS: CMCS Melatonin (NF) 3 MG TAB PO SCH (20:51)
[2016-09-18] MEDS: LEVOTHYROXINE 25 MCG PO SCH (20:51)
[2016-09-18] MEDS: LEVOXYL 100 MCG PO SCH (20:51)
[2016-09-18] MEDS: Divalproex ER TAB(*) 500 MG PO SCH (20:51)
[2016-09-18] MEDS: Nicotine Patch Removal NOTE FOLLOW UP SCH (21:20)
[2016-09-18] MEDS: diPHENhydraMINE PO* 25 MG PO PRN (23:35)
[2016-09-19] MEDS: FLUoxetine CAP* 20 MG PO SCH (07:57)
[2016-09-19] MEDS: Insulin LISPRO* 1 UNITS UNIT SUBCUT SCH ×3 (07:57→16:42)
[2016-09-19] MEDS: Lisinopril TAB* 5 MG PO SCH (07:57)
[2016-09-19] MEDS: Docusate CAP* 100 MG PO SCH (07:57)
[2016-09-19] MEDS: Rivaroxaban TAB(*) 20 MG TAB PO SCH (07:58)
[2016-09-19] MEDS: metFORMIN* 500 MG TAB PO SCH ×3 (07:58→17:00)
[2016-09-19] MEDS: glipiZIDE TAB* 5 MG PO SCH (07:58)
[2016-09-19] MEDS: Nicotine PATCH 14 MG/24 HR* PATCH TRANSDERM SCH (10:05)
[2016-09-19] MEDS: Acetaminophen TAB* 325 MG PO PRN (15:34)
[2016-09-19 16:18] VITALS: BP 155/91
[2016-09-19] MEDS: Atorvastatin* 40 MG TAB PO SCH (17:00)
--- NOTE | 2016-09-20 12:03 | DS ---
DISCHARGE SUMMARY: DATE OF ADMISSION: 09/01/16 DATE OF DISCHARGE: 09/19/16 DISCHARGE DIAGNOSES: 1. Cerebrovascular accident with right-sided weakness. 2. Transient ischemic attack. 3. Diabetes mellitus. 4. Hypertension. 5. Patent foramen ovale. 6. Tobacco use disorder. 7. Depression. 8. History of Atrial Flutter, S/P Cardioversion HISTORY OF PRESENT ILLNESS AND HOSPITAL COURSE: For a complete history and events leading up to her rehab stay, please see the history and physical exam dictated by me on September 01, 2016. While on the rehab unit, the patient remained fairly stable from a medical point of view. Her Lantus was discontinued for her diabetes and she was started on metformin. Later, the glipizide was added. She was discharged home on Lipitor and glipizide. Her blood pressure was under fair control with lisinopril. The patient had a Flores catheter on admission. This was removed and the patient was able to void without difficulty. In an attempt to enhance neurologic recovery, the patient was started on Prozac. This seemed to help with her mood as well. She seemed to tolerate Prozac. The patient was seen by both physical therapy and occupational therapy, as well as speech therapy. She made good gains with all disciplines. With physical therapy at the time of admission, the patient required a moderate amount of assistance of 2 people to transfer from bed to chair. She was min assist to ambulate about 10 feet. With occupational therapy at the time of admission, the patient required total assistance for her lower body ADLs. She was mod assist for toilet transferring. At the time of discharge, the patient was supervision for transfers and ambulation. She was able to ambulate 150 feet. Her agreed to provide 24-hour supervision. She was supervision for toileting and toilet transfers. At the patient's insistence, she was discharged to home on September 19, 2016. The patient insisted on leaving after she was done with therapy. Attempts to talk her out of it so that diabetes education and stroke education could take place were in vain. The patient, however, was not felt to be a safety risk as her agreed to provide 24-hour supervision. She was discharged home with her on September 19, 2016. On September 14, 2016, after breakfast the patient complained to Nursing that her left arm felt heavy and numb. A CAT scan of her brain was done which was unrevealing. A Neurology consultation was done with Dr. Lawrence. He recommended changing her from aspirin to Xarelto. Initially, the patient refused but later agreed to Xarelto. There were no further neurologic symptoms while on the rehab unit. DISCHARGE DIET: Consistent carbohydrate. DISCHARGE MEDICATIONS: Included: 1. Lipitor 40 mg daily. 2. Depakote 1000 mg at bedtime. 3. Prozac 20 mg daily. 4. Glipizide 2.5 mg daily. 5. Lisinopril 5 mg daily. 6. Glucophage 500 mg at breakfast, lunch, and dinner. 7. Levoxyl 225 mcg at bedtime. 8. Xarelto 20 mg daily. 9. Nicotine patch 14 mg applying it in the morning and removing it in the evening. SERVICES AFTER DISCHARGE: Through [facility], she will have Physical Therapy, Occupational Therapy and Speech therapy FOOLOW UP: With Dr. Zackary Spangler, and [facility] CC: Dr. Zackary Spangler* [id number]/[facility] #: [id number] [facility]
== END 2016-09-19 18:00 | disposition home or self-care (01) | DRG 58 ==
LOC: PMRU 17:00
PROVIDERS: ADMIT Physical Medicine & Rehabilitation; ATTEND Physical Medicine & Rehabilitation
PROC: F07Z5ZZ Bed Mobility Treatment (ICD-10-PCS; principal; 2016-09-01)
PROC: F07Z9ZZ Gait Training/Functional Ambulation Treatment (ICD-10-PCS; 2016-09-01)
PROC: F07Z8ZZ Transfer Training Treatment (ICD-10-PCS; 2016-09-01)
PROC: F08Z0ZZ Bathing/Showering Techniques Treatment (ICD-10-PCS; 2016-09-01)
PROC: F08Z1ZZ Dressing Techniques Treatment (ICD-10-PCS; 2016-09-01)
PROC: F08Z3ZZ Feeding/Eating Treatment (ICD-10-PCS; 2016-09-01)
PROC: F06ZBZZ Receptive/Expressive Language Treatment (ICD-10-PCS; 2016-09-01)
DX: I69.351 Hemiplegia and hemiparesis following cerebral infarction affecting right dominant side (principal); I48.92 Unspecified atrial flutter; I10 Essential (primary) hypertension; Q21.1 Atrial septal defect; I69.322 Dysarthria following cerebral infarction; E11.9 Type 2 diabetes mellitus without complications; F32.9 Major depressive disorder, single episode, unspecified; F17.210 Nicotine dependence, cigarettes, uncomplicated; G43.909 Migraine, unspecified, not intractable, without status migrainosus; K21.9 Gastro-esophageal reflux disease without esophagitis; E03.9 Hypothyroidism, unspecified; G47.33 Obstructive sleep apnea (adult) (pediatric); Z96.653 Presence of artificial knee joint, bilateral; Z79.82 Long term (current) use of aspirin; Z79.899 Other long term (current) drug therapy; Z88.1 Allergy status to other antibiotic agents; Z88.8 Allergy status to other drugs, medicaments and biological substances
CPT/HCPCS: 36415; 70450; 80053; 82607; 85025; 99406; A9270-GY; J1644

== ENCOUNTER 2017-03-20 07:05 | Emergency (ER) | payer BC ==
--- NOTE | 2017-03-20 07:37 | UC ---
Thomas Johnson Angela, scribed for Christina Sarabia MD on 03/20/17 at 0716 . Cardiac HPI - HPI Summary HPI Summary: This pt is a 56 y/o female presenting to [facility] c/o heart racing and pounding for the last few days. She describes it feels like my heart beat is racing throughout all my body and feels SOB. She states her head feels "foggy" and notes she has a frontal headache. Pt reports her headache now feels different than her usual migraines. Pt took Aleve yesterday with improvement. No analgesia today. Pt denies nausea, vomiting, visual changes. Pt states she has been getting hopson faster when eating. She notes she couldn't sleep last night. She reports having a UTI recently and finished antibiotics 1 week ago. Since pt's stroke in August 2016, she has had speech and right arm deficits. Pt is on Xarelto since her stroke. Over the last 24 hours, there has been no changes in her neurological deficits. Pt brought in home BP and pulse trend - noted to have diastolic > 100 x last 3 days. HR borderline 100-105 Pt is a current smoker (1 pack lasts 2 days), but notes rare alcohol. PMHx includes CVA (08/30/16), DM, HTN, paroxysmal afib (November 2015). Pt is currently on Xarelto. PSHx: cholecystemoy, appendectomy, lumpectomy. Pt denies history of CA. Patients medication reviewed this visit. - History of Current Complaint Stated Complaint: CHEST COMPLAINT Time Seen by Provider: 03/20/17 07:09 Hx Obtained From: Patient, Family/Grocery Shopper Onset/Duration: Lasting Days Initial Severity: Mild Current Severity: Moderate Pain Intensity: 4 Character: Pounding Aggravating: Nothing Alleviating: Nothing Associated Signs & Symptoms: Positive: Headaches, SOB, Palpitations - Allergy/Home Medications Allergies/Adverse Reactions: Allergies Allergy/AdvReac Type Severity Reaction Status Date / Time Ciprofloxacin [From Cipro] Allergy Unknown Verified 03/20/17 07:10 Reaction Details Metronidazole [From Flagyl] Allergy Unknown Verified 03/20/17 07:10 Reaction Details Home Medications: Home Medications Losartan TAB* [Cozaar TAB*] 03/20/17 [History] PMH/Surg Hx/FS Hx/Imm Hx Previously Healthy: Yes Endocrine History: Diabetes Cardiovascular History: Hypertension, Atrial Fibrillation Respiratory History: COPD GI/ History: Gastroesophageal Reflux Neurological History: CVA - 2016 - Surgical History Surgical History: Yes Surgery Procedure, Year, and Place: Rt SHOULDER - RTC -. KELLY KNEE REPLACEMENTS. TARSAL TUNNEL - Lt ANKLE. APPENDECTOMY. CHOLECYSTECTOMY. CYST - Rt FALLOPIAN & OVARY REMOVED. LUMPECTOMY - Lt BREAST - BENIGN - Family History Known Family History: Positive: Cardiac Disease - father, Hypertension - mother , Diabetes - mother - Social History Occupation: Retired Lives: With Family Alcohol Use: Rare Substance Use Type: None Smoking Status (MU): Current Every Day Smoker Type: Cigarettes Amount Used/How Often: 1 pack/day Household Exposure Type: Cigarettes - Immunization History Most Recent Influenza Vaccination: none Most Recent Tetanus Shot: unknown Most Recent Pneumonia Vaccination: 2013 Review of Systems Constitutional: Negative Skin: Negative Eyes: Negative ENT: Negative Respiratory: Shortness Of Breath Cardiovascular: Palpitations, Other - chest "bounding" Gastrointestinal: Negative Genitourinary: Negative Motor: Negative Neurovascular: Negative Musculoskeletal: Negative Neurological: Headache Psychological: Negative Is Patient Immunocompromised?: No All Other Systems Reviewed And Are Negative: Yes Physical Exam Triage Information Reviewed: Yes Appearance: Well-Appearing, No Pain Distress, Well-Nourished Vital Signs: Initial Vitals Temp Pulse Resp Pulse Ox 98.8 F 105 18 99 03/20/17 07:13 03/20/17 07:13 03/20/17 07:13 03/20/17 07:13 Eye Exam: Normal Eyes: Positive: Conjunctiva Clear ENT Exam: Normal ENT: Positive: Normal ENT inspection, Hearing grossly normal, Pharynx normal, TMs normal Dental Exam: Normal Neck exam: Normal Neck: Positive: Supple, Nontender, No Lymphadenopathy Respiratory Exam: Normal Respiratory: Positive: Chest non-tender, Lungs clear, Normal breath sounds, No respiratory distress, No accessory muscle use Cardiovascular Exam: Normal Cardiovascular: Positive: RRR, No Murmur, Pulses Normal Abdominal Exam: Normal Bowel Sounds: Positive: Present Musculoskeletal: Positive: Other: - mild right arm weakness Neurological: Positive: Alert, Other: - mild right arm weakness, grasp weakness mild slurring speech - baseline since stroke per pt Psychological Exam: Normal Skin Exam: Normal Diagnostics - EKG Cardiac Rate: Tachycardia - rate of 101 bpm Cardiac Rhythm: Sinus: Normal - No acute ST-T wave changes. No change to prior EKG in 08/30/16. - Assessment/Plan Course Of Treatment: PT with complex med hx included HTN, DM, paroxysmal A-fib, tobacco use, CVA 08/19 with residual right sided weakness on xarelto presents with 3 days heart pounding, sob, frontal AGUILAR different from migraines. PT with increaed diastolic pressures. EKG without acute changes, tachycardic. Exam without focal findings. d/w pt and regarding recommendation for lab work and possible imaging. recommend transfer to ED by EMS. Pt adamant does not want EMS - in agreement to drive. d/w pt concerns with private vehicle and differential diagnosis - pt still want to go by car. Pt signed out AMA. forms completed. encouraged call 911 if change mind or sx change. report to Dr. David - Clinical Impression Provider Diagnoses: AMA. SOB. palpitations. AGUILAR - Physician Notifications Discussed Patient Care With: Dr. David Time Discussed With Above Provider: 07:35 Instructed by Provider To: Transfer Discharge - Discharge Plan Condition: Stable Disposition: TRANS HIGHER LVL OF CARE FAC Patient Education Materials: Palpitations (ED), General Headache (ED), Against Medical Advice (ED) Referrals: No Primary Care Phys,NOPCP [Primary Care Provider] - Additional Instructions: The doctor that evaluated you today thinks you need additional testing including laboratory studies and possible radiology imaging. The doctor that evaluated you recommends you go to the emergency department for this evaluation. The doctor recommended you take an ambulance, although you have declined and your will drive you. if you change your mind your additional symptoms develop, call 911 The documentation as recorded by the Thomas qureshi Angela accurately reflects the service I personally performed and the decisions made by me, Christina Sarabia MD.
[2017-03-20 07:45] VITALS: BP 166/87
== END 2017-03-20 07:42 | disposition left against medical advice (07) ==
LOC: UCEAST 07:05
DX: R06.02 Shortness of breath (principal); R00.2 Palpitations; R51 Headache; R00.0 Tachycardia, unspecified; E11.9 Type 2 diabetes mellitus without complications; I10 Essential (primary) hypertension; I48.91 Unspecified atrial fibrillation; J44.9 Chronic obstructive pulmonary disease, unspecified; K21.9 Gastro-esophageal reflux disease without esophagitis; Z86.73 Personal history of transient ischemic attack (TIA), and cerebral infarction without residual deficits; Z96.653 Presence of artificial knee joint, bilateral; Z90.49 Acquired absence of other specified parts of digestive tract; Z88.1 Allergy status to other antibiotic agents; F17.210 Nicotine dependence, cigarettes, uncomplicated
CPT/HCPCS: 93005; 99212; G0463

== ENCOUNTER → 2017-03-20 08:02 | Emergency (ER) | payer BC ==
[~2017-03-20 08:02] MED LIST: HYDROcodone/ACETAMIN 5-325 MG* 1 TAB PO ONE; Labetalol IV* 5 MG/ML 20 ML VIAL IV PUSH ONE; Metoclopramide IV* 5 MG/ML 2 ML VIAL IV ONE; Metoprolol Tartrate TAB* 25 MG PO ONE; diPHENhydraMINE IV* 25 MG in NS 0.9% 50 ML* 50 ML IVPB ONE
[2017-03-20 09:07] LABS: Hematocrit 43 % (35-47); Hemoglobin 14.4 g/dl (12.0-16.0); Mean Corpuscular HGB Conc 34 g/dl (31-36); Mean Corpuscular Hemoglobin 31 pg (27-31); Mean Corpuscular Volume 93 fL (80-97); Mean Platelet Volume 8 um3 (7.4-10.4); Red Cell Distribution Width 14 % (10.5-15); White Blood Count 10.6 10^3/ul (3.5-10.8)
--- NOTE | 2017-03-20 09:12 | RAD ---
Indication: Palpitations. Single frontal view of the chest performed at 0850 hours was reviewed. Comparison is made with previous exam dated August 30, 2016. No mediastinal shift is noted. Heart is of normal size and configuration. Lung encarnacion appear clear. IMPRESSION: NO ACTIVE CARDIOPULMONARY DISEASE IS NOTED.
[2017-03-20 09:18] LABS: BUN/Creatinine Ratio 18.4 (8-20); Calcium 9.4 mg/dL (8.6-10.3); EGFR African American 100.5 (>60); EGFR Non-African American 78.2 (>60); Globulin 3.1 g/dL (2-4); Total Bilirubin 0.4 mg/dL (0.2-1.0); Total Protein 7.1 g/dL (6.4-8.9)
[2017-03-20 10:02] LABS: Potassium 4.7 mmol/L (3.5-5.0)
[2017-03-20 12:39] LABS: TSH (Thyroid Stimulating Horm) 0.78 mcIU/mL (0.34-5.60)
[2017-03-20 12:45] LABS: Free T4 1.31 ng/dL (0.61-1.12)
[2017-03-20 13:51] VITALS: BP 108/69
--- NOTE | 2017-03-20 18:27 | ED ---
Homar Johnson Rebecca, scribed for Akash Valdes MD on 03/20/17 at 0835 . Complex/Multi-Sys Presentation - HPI Summary HPI Summary: Pt is a 56 y/o F referred from [facility] who presents to ED c/o slight SOB, mild AGUILAR and hypertension intermittently for the last 4 days. AGUILAR is currently moderate , ranked 4/10 and described as throbbing, stating "I feel my heart beat all through my body." Denies N/V/D, constipation and CP. PMHx HTN, migraine. Has been on Lisinopril but recently changed it to Losartan. SHx smokes 1/2PPD. - History Of Current Complaint Chief Complaint: EDDysrhythmPalp Time Seen by Provider: 03/20/17 08:26 Hx Obtained From: Patient Onset/Duration: Lasting Days - 4 days, Still Present Timing: Intermittent, Lasting: Severity Currently: Moderate - 4/10 Location: Pain At: - AGUILAR Character: Throbbing Aggravating Factor(s): Nothing Alleviating Factor(s): Nothing Associated Signs And Symptoms: Positive: Headache, SOB, Other - Hypertension. Negative: Nausea, Vomiting, Diarrhea - Allergies/Home Medications Allergies/Adverse Reactions: Allergies Allergy/AdvReac Type Severity Reaction Status Date / Time Ciprofloxacin [From Cipro] Allergy Unknown Verified 03/20/17 07:10 Reaction Details Metronidazole [From Flagyl] Allergy Unknown Verified 03/20/17 07:10 Reaction Details PMH/Surg Hx/FS Hx/Imm Hx Endocrine/Hematology History: Reports: Hx Diabetes - diagnosed in 2016, Hx Thyroid Disease Cardiovascular History: Reports: Hx Hypertension Denies: Hx Pacemaker/ICD Respiratory History: Reports: Hx Chronic Obstructive Pulmonary Disease (COPD), Hx Sleep Apnea, Other Respiratory Problems/Disorders - PETER GI History: Reports: Hx Gastroesophageal Reflux Disease History: Denies: Hx Renal Disease Sensory History: Reports: Hx Contacts or Glasses - reading Denies: Hx Hearing Aid Opthamlomology History: Reports: Hx Contacts or Glasses - reading Neurological History: Reports: Hx Migraine Psychiatric History: Reports: Hx Depression Denies: Hx Panic Disorder - Surgical History Surgery Procedure, Year, and Place: Rt SHOULDER - RTC -. KELLY KNEE REPLACEMENTS. TARSAL TUNNEL - Lt ANKLE. APPENDECTOMY. CHOLECYSTECTOMY. CYST - Rt FALLOPIAN & OVARY REMOVED. LUMPECTOMY - Lt BREAST - BENIGN Hx Anesthesia Reactions: No Infectious Disease History: No Infectious Disease History: Denies: History Other Infectious Disease, Traveled Outside the [place] in Last 30 Days - Family History Known Family History: Positive: Cardiac Disease - father, Hypertension - mother , Diabetes - mother - Social History Alcohol Use: Rare Substance Use Type: Reports: None Hx Tobacco Use: Yes Smoking Status (MU): Current Every Day Smoker Type: Cigarettes Amount Used/How Often: 1 pack/day Review of Systems Positive: Other - Hypertension Negative: Chest Pain Positive: Shortness Of Breath Positive: Other - NEGATIVE: constipation. Negative: Vomiting, Diarrhea, Nausea Positive: Headache - mild All Other Systems Reviewed And Are Negative: Yes Physical Exam - Summary Physical Exam Summary: VITAL SIGNS: Reviewed. GENERAL: ~Patient is a well-developed and nourished female who is lying comfortable in the stretcher. ~Patient is not in any acute respiratory distress. HEAD AND FACE: No signs of trauma. ~No ecchymosis, hematomas or skull depressions. No sinus tenderness. EYES: PERRLA, EOMI x 2, No injected conjunctiva, no nystagmus. EARS: Hearing grossly intact. Ear canals and tympanic membranes are within normal limits. MOUTH: Oropharynx within normal limits. NECK: Supple, trachea is midline, no adenopathy, no JVD, no carotid bruit, no c- spine tenderness, neck with full ROM. CHEST: Symmetric, no tenderness at palpation LUNGS: Clear to auscultation bilaterally. No wheezing or crackles. CVS: Regular rhythm, slightly tachycardic, S1 and S2 present, no murmurs or gallops appreciated. ABDOMEN: Soft, non-tender. No signs of distention. No rebound no guarding, and no masses palpated. Bowel sounds are normal. EXTREMITIES: FROM in all major joints, no edema, no cyanosis or clubbing. NEURO: Alert and oriented x 3. No acute neurological deficits. Speech is normal and follows commands. SKIN: Dry and warm Triage Information Reviewed: Yes Vital Signs On Initial Exam: Initial Vitals Temp Pulse Resp BP Pulse Ox 97.5 F 104 17 158/94 95 03/20/17 08:05 03/20/17 08:05 03/20/17 08:05 03/20/17 08:05 03/20/17 08:05 Vital Signs Reviewed: Yes Diagnostics - Vital Signs Vital Signs Temp Pulse Resp BP Pulse Ox 03/20/17 08:21 98.5 F 106 23 153/95 97 03/20/17 08:05 97.5 F 104 17 158/94 95 - Laboratory Lab Results: Lab Results 03/20/17 03/20/17 03/20/17 Range/Units 08:47 08:47 08:47 WBC 10.6 (3.5-10.8) 10^3/ul RBC 4.60 (4.0-5.4) 10^6/ul Hgb 14.4 (12.0-16.0) g/dl Hct 43 (35-47) % MCV 93 (80-97) fL MCH 31 (27-31) pg MCHC 34 (31-36) g/dl RDW 14 (10.5-15) % Plt Count 297 (150-450) 10^3/ul MPV 8 (7.4-10.4) um3 Neut % (Auto) 66.4 (38-83) % Lymph % (Auto) 24.2 L (25-47) % Gregory % (Auto) 6.3 (1-9) % Eos % (Auto) 1.5 (0-6) % Baso % (Auto) 1.6 (0-2) % Absolute Neuts (auto) 7.0 (1.5-7.7) 10^3/ul Absolute Lymphs (auto) 2.6 (1.0-4.8) 10^3/ul Absolute Monos (auto) 0.7 (0-0.8) 10^3/ul Absolute Eos (auto) 0.2 (0-0.6) 10^3/ul Absolute Basos (auto) 0.2 (0-0.2) 10^3/ul Absolute Nucleated RBC 0 10^3/ul Nucleated RBC % 0 Sodium 133 (133-145) mmol/L Potassium 4.7 (3.5-5.0) mmol/L Chloride 101 (101-111) mmol/L Carbon Dioxide 24 (22-32) mmol/L Anion Gap 8 (2-11) mmol/L BUN 14 (6-24) mg/dL Creatinine 0.76 (0.51-0.95) mg/dL Est GFR ( Amer) 100.5 (>60) Est GFR (Non-Af Amer) 78.2 (>60) BUN/Creatinine Ratio 18.4 (8-20) Glucose 351 H (70-100) mg/dL Lactic Acid (0.5-2.0) mmol/L Calcium 9.4 (8.6-10.3) mg/dL Total Bilirubin 0.40 (0.2-1.0) mg/dL AST 20 (13-39) U/L ALT 33 (7-52) U/L Alkaline Phosphatase 100 (34-104) U/L Troponin I 0.00 (<0.04) ng/mL B-Natriuretic Peptide 24 ( - 100) pg/mL Total Protein 7.1 (6.4-8.9) g/dL Albumin 4.0 (3.2-5.2) g/dL Globulin 3.1 (2-4) g/dL Albumin/Globulin Ratio 1.3 (1-3) TSH 0.78 (0.34-5.60) mcIU/mL Free T4 1.31 H (0.61-1.12) ng/dL / Range/Units 08:47 WBC (3.5-10.8) 10^3/ul RBC (4.0-5.4) 10^6/ul Hgb (12.0-16.0) g/dl Hct (35-47) % MCV (80-97) fL MCH (27-31) pg MCHC (31-36) g/dl RDW (10.5-15) % Plt Count (150-450) 10^3/ul MPV (7.4-10.4) um3 Neut % (Auto) (38-83) % Lymph % (Auto) (25-47) % Gregory % (Auto) (1-9) % Eos % (Auto) (0-6) % Baso % (Auto) (0-2) % Absolute Neuts (auto) (1.5-7.7) 10^3/ul Absolute Lymphs (auto) (1.0-4.8) 10^3/ul Absolute Monos (auto) (0-0.8) 10^3/ul Absolute Eos (auto) (0-0.6) 10^3/ul Absolute Basos (auto) (0-0.2) 10^3/ul Absolute Nucleated RBC 10^3/ul Nucleated RBC % Sodium (133-145) mmol/L Potassium (3.5-5.0) mmol/L Chloride (101-111) mmol/L Carbon Dioxide (22-32) mmol/L Anion Gap (2-11) mmol/L BUN (6-24) mg/dL Creatinine (0.51-0.95) mg/dL Est GFR ( Amer) (>60) Est GFR (Non-Af Amer) (>60) BUN/Creatinine Ratio (8-20) Glucose (70-100) mg/dL Lactic Acid 2.5 H* (0.5-2.0) mmol/L Calcium (8.6-10.3) mg/dL Total Bilirubin (0.2-1.0) mg/dL AST (13-39) U/L ALT (7-52) U/L Alkaline Phosphatase (34-104) U/L Troponin I (<0.04) ng/mL B-Natriuretic Peptide ( - 100) pg/mL Total Protein (6.4-8.9) g/dL Albumin (3.2-5.2) g/dL Globulin (2-4) g/dL Albumin/Globulin Ratio (1-3) TSH (0.34-5.60) mcIU/mL Free T4 (0.61-1.12) ng/dL Result Diagrams: 03/20/17 08:47 03/20/17 08:47 Lab Statement: Any lab studies that have been ordered have been reviewed, and results considered in the medical decision making process. - Radiology CXR Xray Interpretation: No Acute Changes - NO ACTIVE CARDIOPULMONAR DISEASE IS NOTED. ED physician reviewed radiology report and agrees. Radiology Interpretation Completed By: Radiologist - EKG 0857 Cardiac Rate: Tachycardia - 101 bpm EKG Rhythm: Sinus Tachycardia ST Segment: Normal - No ST elevations EKG Interpretation: Normal axis Complex Multi-Symp Course/Dx Assessment/Plan: Pt is a 56 y/o F referred from [facility] who presents to ED c/o slight SOB, mild AGUILAR and hypertension intermittently for the last 4 days. AGUILAR is currently moderate, ranked 4/10 and described as throbbing, stating "I feel my heart beat all through my body." Denies N/V/D, constipation and CP. PMHx HTN, migraine. Has been on Lisinopril but recently changed it to Losartan. SHx smokes 1/2PPD. Test results without significant abnormality except Glucose 351 , lactic acid 2.5. The TSH is normal and the free T4 is 1.31. I believe that the increased lactic acid is secondary to hyperglycemia. Initially, the patient came in with hypertension and a headache. Her symptoms resolved in the ED without medication. I did give the patient metoprolol for the hypertension and tachycardia and the symptoms resolved. I offered the patient a CT Brain since the patient was having palpitations and a throbbing sensation in her head, but she declined. At this point ,the patient is asymptomatic and hemodynamically stable. I discussed the case with Dr. Zackary Spangler, and he reports no other suggestions. However, he will be seeing the patient tomorrow as a follow up. The patient is comfortable with this plan. The patient was encouraged to return to the ED if the symptoms worsened or returned. She understands and agrees. She is hemodynamically stable and alert and oriented x3. - Diagnoses Differential Diagnoses/HQI/PQRI: Other - Arrythmia, palpitations, anxiety, migraine headaches, uncontrol HTN Provider Diagnoses: Palpitations, Hyperglycemia Discharge - Discharge Plan Condition: Stable Disposition: HOME Patient Education Materials: Hyperglycemia, Non-Diabetic (ED), Palpitations (ED ) Referrals: Zackary Spangler MD [Primary Care Provider] - 3 Days The documentation as recorded by the Homar qureshi Rebecca accurately reflects the service I personally performed and the decisions made by me, Akash Valdes MD.
== END | disposition home or self-care (01) ==
LOC: ED 08:02
DX: R51 Headache (principal); R06.02 Shortness of breath; R00.2 Palpitations; R73.9 Hyperglycemia, unspecified
CPT/HCPCS: 36415; 71010; 80053; 83605; 83880; 84439; 84443; 84484; 85025; 93005; 96374; 96375; 99283; J1200; J2765